=== PATIENT | male | born 1975 | race Caucasian/White ===

== ENCOUNTER → 2020-06-09 13:14 | Outpatient (BNVA) | payer OTHER, SELFPAY | PROVIDERS: PCP Internal Medicine; Visit Provider Physician Assistant | DX: S87.82XA Crushing injury of left lower leg, initial encounter (principal); S99.922A Unspecified injury of left foot, initial encounter | CPT/HCPCS: 99213 ==

== ENCOUNTER → 2020-06-17 12:23 | Outpatient (BNVA) | payer OTHER, SELFPAY | PROVIDERS: PCP Internal Medicine; Referring Provider Internal Medicine; Visit Provider Physician Assistant | DX: S87.82XD Crushing injury of left lower leg, subsequent encounter (principal) | CPT/HCPCS: 99213 ==

== ENCOUNTER → 2020-07-18 13:03 | Outpatient (BNVA) | payer OTHER, SELFPAY | PROVIDERS: Visit Provider Physician Assistant | DX: S97.82XD Crushing injury of left foot, subsequent encounter (principal); S97.81XD Crushing injury of right foot, subsequent encounter; M77.52 Other enthesopathy of left foot and ankle | CPT/HCPCS: 99212 ==

== ENCOUNTER 2020-09-08 14:00 | Outpatient (RCR) | payer OTHER, SELFPAY ==
--- NOTE | 2020-07-22 16:46 | MHC.PT.EP ---
[facility] [place] Office [place] Office [place] Office [address] Billy Garcia [address] [phone] F: [phone] F: [phone] F: [phone] F: [phone] Physical Therapy Plan of Care Date of Evaluation: 07/22/20 Date of Surgery: NA Diagnosis: FOOT CRUSH INJURY BILATERAL (LEFT > RIGHT) Assessment: ELIN IS A PLEASANT 45 YO HOSTESS WHO WAS INJURED AT WORK WHEN STRUCK IN BOTH LEGS WITH BOBCAT TIRE. HE SUSTAINED AN INVERSION INJURY TO RIGHT ANKLE, EVERSION INJURY TO LEFT ANKLE. IMPAIRMENTS NOW INCLUDE DECREASED STRENGTH AND ROM OF MYRNA FEET AND ANKLES, MILD INCREASE IN LEFT SIDED EDEMA, ALTERED SOFT TISSUE MOBILITY OF LEFT MEDIAL CALF, RIGHT LATERAL CALF, INCREASED PAIN. 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 Frequency and Duration: The patient will be seen 2 X WEEK FOR 6 WEEKS Short Term Goals: INITIATE HEP AND PROMOTE INDEPENDENT MANAGEMENT OF PAIN IN 2 WEEKS Senior Living Goals: TO DEMONSTRATE NORMALIZED SOFT TISSUE MOBILITY 3:3 T/O MYRNA LE IN 6 WEEKS TO DEMONSTRATE FULL ANKLE ROM AND STRENGTH WITHOUT RESTRUCTION IN 6 WEEKS TO TOLERANCE AMBULATION ON BOTH LEVEL AND UNEVEN SURFACES WITHOUT RESTRICTION IN 2 WEEKS TO RETURN TO WORK FT/FD IN 6 WEEKS WITH PAIN NO GREATER THAN 2/10 Treatment Plan: Modalities to reduce pain, spasms and effusion. Manual therapy to restore motion and function. Therapeutic exercise to improve strength and flexibility. Neuromuscular re-education for posture and balance. Therapeutic activities to return to functional activities of daily living. Please sign and return to therapist. Thank you for your referral.
== END 2020-09-29 13:20 | disposition other institution (70) ==
LOC: HO.PT 14:00
PROVIDERS: Visit Provider Physician Assistant
DX: S87.82XD Crushing injury of left lower leg, subsequent encounter (principal)
CPT/HCPCS: 97110; 97162; 97530; 97535

== ENCOUNTER → 2020-09-17 12:33 | Outpatient (BNVA) | payer OTHER, SELFPAY | PROVIDERS: PCP Internal Medicine; Visit Provider Physician Assistant | DX: S87.82XD Crushing injury of left lower leg, subsequent encounter (principal) | CPT/HCPCS: 99212 ==

== ENCOUNTER → 2020-10-29 12:15 | Outpatient (BNVA) | payer OTHER, SELFPAY | PROVIDERS: Visit Provider Physician Assistant | DX: S87.82XA Crushing injury of left lower leg, initial encounter (principal); M77.52 Other enthesopathy of left foot and ankle | CPT/HCPCS: 99212 ==

== ENCOUNTER → 2020-11-12 13:20 | Outpatient (BNVA) | payer OTHER, SELFPAY | PROVIDERS: Visit Provider Physician Assistant | DX: M17.12 Unilateral primary osteoarthritis, left knee (principal) | CPT/HCPCS: 20610; 99212; J1040 ==

== ENCOUNTER → 2022-03-04 15:37 | Outpatient (BNVA) | payer OTHER, SELFPAY | PROVIDERS: PCP Internal Medicine; Referring Provider Internal Medicine; Visit Provider Nurse Practitioner | DX: R79.89 Other specified abnormal findings of blood chemistry (principal) | CPT/HCPCS: 99202 ==

== ENCOUNTER → 2022-03-24 13:09 | Outpatient (BNVA) | payer OTHER, SELFPAY | PROVIDERS: PCP Internal Medicine; Visit Provider Physician Assistant | DX: M17.12 Unilateral primary osteoarthritis, left knee (principal); M23.92 Unspecified internal derangement of left knee | CPT/HCPCS: 99212 ==

== ENCOUNTER 2022-03-31 18:57 | Outpatient (REF) | payer OTHER, SELFPAY ==
--- NOTE | ~2022-03-31 | MR_ITS ---
EXAMINATION: MR KNEE WITHOUT CONTRAST, LEFT CLINICAL INFORMATION: Unilateral primary osteoarthritis, left knee. COMPARISON: 05/29/2019 TECHNIQUE: MRI of the knee without contrast was performed using routine sequences on a high-field scanner. FINDINGS: MENISCI: Medial Meniscus: The posterior horn and body of the medial meniscus are markedly macerated with significant loss of meniscal tissue. There is an extruded flap fragment at the meniscal body which is displaced cephalad at the meniscofemoral recess, measuring 1.4 cm in length. Anterior horn appears relatively well preserved. Lateral Meniscus: Intact. LIGAMENTS: Cruciate: ACL is absent, consistent with a chronic tear with resorption. PCL is intact. Collateral: Intact. EXTENSOR MECHANISM: Intact. ARTICULAR CARTILAGE/BONE: Patellofemoral Compartment: Cxizoegk-fc-adgik marginal osteophytes are present at the patella. Mild chondral surface irregularity at the median ridge. Chondral fissures are noted in the central trochlear groove with nonuniform chondral thinning. Rkspoclb-jg-[id number] marginal osteophytes. Medial Compartment: Full-thickness articular cartilage loss is present at the majority of the medial femoral condyle and medial tibial articular surfaces with associated articular cortical remodeling, sclerosis, and subchondral edema. A small amount of residual articular cartilage is present in the anterior and lateral aspects of the medial compartment. Lateral Compartment: Focal moderate to high-grade cartilage loss is present at the medial quarter of the lateral tibial plateau involving the lateral tibial spine with associated articular remodeling of the tip of the lateral tibial spine. Moderate sized marginal osteophytes. More mild chondral thinning at the medial aspect of the lateral femoral condyle. JOINT FLUID AND BURSAE: Small joint effusion. No Ruffin's cyst. There is a multilocular cyst along the anteromedial margin of the medial tibial plateau extending medially from the region of the patellar tendon insertion and anteriorly from the region of the MCL insertion, likely a ganglion cyst. The exact site of origin is uncertain, though the multilocular cyst measures approximately 5.6 cm in length and 1.2 x 1.2 cm in greatest cross-section. Synovial cysts are evident at the origin of the medial and lateral heads of the gastrocnemius muscles. Loose bodies in the posterior aspect of the joint measure up to 0.8 cm in diameter. MR/MR knee LT wo con IMPRESSION: 1. Severe medial compartment osteoarthritis with marked meniscal maceration, extrusion, and degenerative tearing. 2. Chronically torn and resorbed ACL. 3. More iudp-pp-zxiislvv lateral and mild patellofemoral compartment osteoarthritis. 4. Small joint effusion with loose bodies in the posterior aspect of the joint.
== END 2022-03-31 18:58 | disposition home or self-care (01) ==
LOC: HO.MRI 18:57
PROVIDERS: Visit Provider Physician Assistant
DX: M17.12 Unilateral primary osteoarthritis, left knee (principal); M23.92 Unspecified internal derangement of left knee
CPT/HCPCS: 73721

== ENCOUNTER 2022-04-07 05:57 | Outpatient (REF) | payer OTHER, SELFPAY ==
[2022-04-07 06:08] LABS: MANUAL DIFF FLAG NO
[2022-04-07 07:34] LABS: Basophils Percent Auto 0.3 % (0-2); Eosinophils Percent Auto 0.6 % (0-4); Hematocrit 46.1 % (42.0-52.0); Hemoglobin 15.8 g/dl (14.0-18.0); Imm Gran Abs Auto 0.04 X10*3/uL (0.00-0.03); Imm Gran Pct Auto 0.6 % (0.0-0.4); Lymphocytes Percent Auto 31.4 % (20-40); Mean Corpuscular HGB Conc 34.3 g/dl (31.0-36.0); Mean Corpuscular Hemoglobin 30.8 pg (27.0-33.0); Mean Corpuscular Volume 89.9 fL (80.0-98.0); Mean Platelet Volume 9.9 fL (9.4-12.4); Monocytes Absolute Auto 0.5 X10*3/uL (0.1-1.2); Monocytes Percent Auto 8.5 % (2-11); Neutrophils Absolute Auto 3.7 x10*3/uL (2.0-8.3); Neutrophils Percent Auto 58.6 % (45-73); Platelet Count 241 X10*3/uL (160-400); Red Blood Count 5.13 X10*6/uL (4.60-5.80); Red Cell Distribution Width 12.8 % (11.0-16.0); White Blood Count 6.2 X10*3/uL (4.8-10.8)
[2022-04-07 08:05] LABS: Alanine Aminotransferase 97 U/L (0-40); Albumin Level 4.4 g/dL (3.5-5.0); Alkaline Phosphatase 64 U/L (39-117); Anion Gap 15 (12-20); Aspartate Amino Transferase 38 U/L (5-37); Bilirubin Total 0.8 mg/dL (0.0-1.0); Blood Urea Nitrogen 14 mg/dL (9-16); Calcium 9.1 mg/dL (8.4-10.2); Carbon Dioxide 25 mmol/L (22-29); Chloride 105 mmol/L (96-108); Estimated Glomerular Filt Rate > 60; Gamma Glutamyl Transpeptidase 131 U/L (11-51); Glucose Random 98 mg/dL (60-115); Potassium 4.2 mmol/L (3.3-5.1); Sodium 141 mmol/L (135-145); Total Protein 7.2 g/dL (6.5-8.0)
[2022-04-07 08:16] LABS: HBc Num1 0.21 S/CO (0.00-0.79); HBsAGNum1 0.24 S/CO (0.00-0.99); HIV AB/AG Nonreactive (Nonreactive); HIV Num 1 0.14 S/CO (0.00-0.99); Hepatitis A Antibody IgM 0.37 Index (0-0.79); Hepatitis B Core Antibody Nonreactive (Nonreactive); Hepatitis B Surface Antigen Negative (Negative); ~Hepatitis A Antibody IgM Nonreactive (Nonreactive); ~Hepatitis B Surface Antibody NONREACTIVE (Nonreactive); ~Hepatitis C Antibody Nonreactive (Nonreactive)
[2022-04-07 08:24] LABS: Ferritin 316 ng/mL (20-250)
[2022-04-09 13:21] LABS: Alpha Fetoprotein 2.7 ng/mL (<6.1)
[2022-04-12 16:52] LABS: Anti Nuclear Antibody Screen POSITIVE (NEGATIVE); Anti Nuclear Antibody Titer 1:40 titer
[2022-04-13 13:56] LABS: Smooth Muscle Antibody <20 U (<20)
[2022-04-14 15:32] LABS: Mitochondrial Antibodies NEGATIVE (NEGATIVE)
== END 2022-04-07 05:58 | disposition home or self-care (01) ==
LOC: HO.LAB 05:57
PROVIDERS: PCP Internal Medicine; Visit Provider Nurse Practitioner
DX: R79.89 Other specified abnormal findings of blood chemistry (principal)
CPT/HCPCS: 36415; 80053; 82105; 82728; 82977; 85025; 86015; 86038; 86039; 86255; 86256; 86704; 86706; 86709; 86803; 87340; 87389

== ENCOUNTER 2022-04-26 08:51 | Outpatient (REF) | payer OTHER, SELFPAY ==
--- NOTE | ~2022-04-26 | US_ITS ---
EXAMINATION: US COMPLETE ABDOMEN WITH LIVER ELASTOGRAPHY CLINICAL INFORMATION: Elevated LFTs COMPARISON: None. TECHNIQUE: Real-time imaging of the abdominal viscera. Noninvasive ultrasound liver fibrosis assessment is performed using Adwoa ElastPQ point quantification shear wave elastography (2D-SWE) with a C5-2 MHz transducer. Multiple elastography samples are obtained. FINDINGS: PANCREAS: Normal. The visualized pancreatic head and body are normal in appearance. The remainder of the pancreas is obscured from visualization by the overlying bowel gas. ABDOMINAL AORTA: The proximal, middle, and distal aortic segments are normal in caliber. INFERIOR VENA CAVA: Visualized portions are normal. LIVER: The liver demonstrates normal size, contour and increased echogenicity. No focal lesion or intrahepatic biliary duct dilatation. The right lobe measures 17.7 cm in length. The left lobe measures 7.9 cm in length. Portal flow is hepatopedal Shear wave liver elastography median stiffness is 1.47 m/s (reference: normal median stiffness is 1.3 m/s or less). IQR/median stiffness to assess sampling precision is 0.07 (reference: good quality data set is IQR/median stiffness of 0.15 or less). GALLBLADDER: Gallbladder wall thickness is 0.2 cm The gallbladder is physiologically distended without evidence of stones, sludge, polyps, wall thickening or pericholecystic fluid. COMMON BILE DUCT: Normal in caliber measuring 0.3 cm in diameter. RIGHT KIDNEY: Normal. No hydronephrosis. No renal calculi or focal parenchymal lesions. The kidney measures 12.1 cm in maximum dimension. LEFT KIDNEY: Normal. No hydronephrosis. No renal calculi or focal parenchymal lesions. The kidney measures 12.1 cm in maximum dimension. SPLEEN: Normal. The spleen measures 9.4 cm in maximum dimension. FREE FLUID: None. US/US abdomen comp w elastography IMPRESSION: 1. Diffuse hepatic steatosis without focal lesion. Rest of the abdominal ultrasound is unremarkable. 2. Liver elastography: Median liver stiffness measures 1.47 m/s corresponds to cACLD (ruled out) REFERENCE: Society of Radiologists in Ultrasound Liver Stiffness Thresholds (2019): LIVER STIFFNESS THRESHOLDS: *Liver Stiffness equal or less than 1.3 m/s: High probability of being normal. *Liver Stiffness less than 1.7 m/s: In the absence of other known clinical signs, rules out compensated advanced chronic liver disease. *Liver Stiffness 1.7-2.1 m/s: Suggestive of compensated advanced chronic liver disease but need further test for confirmation. *Liver Stiffness over 2.1 m/s: Rules in compensated advanced chronic liver disease. *Liver Stiffness over 2.4 m/s: Suggestive of clinically significant portal hypertension. QUALITY OF DATA SET: *IQR/Median value equal or less than 0.15 implies a quality data set. *IQR/Median value over 0.15 implies a poor quality data set. SIGNIFICANT CHANGE FROM PRIOR EXAM: Significant change if liver stiffness measurement is 10% or greater from prior exam. OTHER CONSIDERATIONS: The stage of liver fibrosis may be overestimated in the setting of acute hepatitis, liver inflammation, elevated liver function tests, hepatic vascular congestion, obstructive cholestasis, non-fasting state, and infiltrative diseases such as amyloidosis and lymphoma. In some patients with NAFLD, the liver stiffness thresholds for compensated advanced chronic liver disease may be lower. In causes other than viral hepatitis and NAFLD, liver stiffness thresholds are not well established.
== END 2022-04-26 08:52 | disposition home or self-care (01) ==
LOC: HO.US 08:51
PROVIDERS: Visit Provider Nurse Practitioner
DX: R79.89 Other specified abnormal findings of blood chemistry (principal)
CPT/HCPCS: 76705; 76981

== ENCOUNTER → 2022-05-04 15:57 | Outpatient (BNVA) | payer OTHER, SELFPAY | PROVIDERS: PCP Internal Medicine; Visit Provider Nurse Practitioner | DX: R94.5 Abnormal results of liver function studies (principal); K76.0 Fatty (change of) liver, not elsewhere classified | CPT/HCPCS: 99212 ==

== ENCOUNTER → 2022-05-07 15:08 | Outpatient (BNVA) | payer OTHER, SELFPAY | PROVIDERS: PCP Internal Medicine; Visit Provider Physician Assistant | DX: M17.12 Unilateral primary osteoarthritis, left knee (principal); S83.512D Sprain of anterior cruciate ligament of left knee, subsequent encounter | CPT/HCPCS: 99212 ==

== ENCOUNTER → 2022-06-10 15:29 | Outpatient (BNVA) | payer OTHER, SELFPAY | PROVIDERS: PCP Internal Medicine; Visit Provider Orthopaedic Surgery | DX: Z01.818 Encounter for other preprocedural examination (principal); S83.512D Sprain of anterior cruciate ligament of left knee, subsequent encounter; M17.12 Unilateral primary osteoarthritis, left knee | CPT/HCPCS: 99212; J1100 ==

== ENCOUNTER → 2022-08-10 11:04 | Outpatient (BNVA) | payer OTHER, SELFPAY | PROVIDERS: PCP Internal Medicine; Visit Provider Surgery | DX: M17.12 Unilateral primary osteoarthritis, left knee (principal); R79.89 Other specified abnormal findings of blood chemistry; E66.01 Morbid (severe) obesity due to excess calories; Z68.38 Body mass index [BMI] 38.0-38.9, adult | CPT/HCPCS: 99202 ==

== ENCOUNTER → 2022-08-12 15:23 | Outpatient (BNVA) | payer OTHER, SELFPAY | PROVIDERS: PCP Internal Medicine; Visit Provider Physician Assistant | DX: Z01.818 Encounter for other preprocedural examination (principal); M17.12 Unilateral primary osteoarthritis, left knee | CPT/HCPCS: 99212 ==

== ENCOUNTER 2022-08-17 09:22 | Inpatient (IN) | payer OTHER, SELFPAY ==
[2022-07-22 16:16] LABS: MANUAL DIFF FLAG NO
[2022-07-22 17:54] LABS: Anion Gap 15 (12-20); Blood Urea Nitrogen 14 mg/dL (9-16); Calcium 9.5 mg/dL (8.4-10.2); Carbon Dioxide 23 mmol/L (22-29); Chloride 106 mmol/L (96-108); Estimated Glomerular Filt Rate > 60; Glucose Random 94 mg/dL (60-115); Potassium 4.1 mmol/L (3.3-5.1); Sodium 140 mmol/L (135-145)
[2022-07-22 17:55] LABS: Basophils Percent Auto 0.3 % (0-2); Eosinophils Absolute Auto 0.1 X10*3/uL (0.0-0.4); Eosinophils Percent Auto 0.8 % (0-4); Hematocrit 46.3 % (42.0-52.0); Hemoglobin 15.5 g/dl (14.0-18.0); Imm Gran Abs Auto 0.03 X10*3/uL (0.00-0.03); Imm Gran Pct Auto 0.5 % (0.0-0.4); Lymphocytes Percent Auto 31.4 % (20-40); Mean Corpuscular HGB Conc 33.5 g/dl (31.0-36.0); Mean Corpuscular Hemoglobin 29.9 pg (27.0-33.0); Mean Corpuscular Volume 89.4 fL (80.0-98.0); Mean Platelet Volume 10.6 fL (9.4-12.4); Monocytes Absolute Auto 0.6 X10*3/uL (0.1-1.2); Monocytes Percent Auto 9.6 % (2-11); Neutrophils Absolute Auto 3.6 x10*3/uL (2.0-8.3); Neutrophils Percent Auto 57.4 % (45-73); Platelet Count 221 X10*3/uL (160-400); Red Blood Count 5.18 X10*6/uL (4.60-5.80); Red Cell Distribution Width 12.5 % (11.0-16.0); White Blood Count 6.3 X10*3/uL (4.8-10.8)
--- NOTE | 2022-07-23 07:02 | ECG_ITS ---
Test Reason : PRE OP Blood Pressure : / mmHG Vent. Rate : 064 BPM Atrial Rate : 064 BPM P-R Int : 152 ms QRS Dur : 086 ms QT Int : 400 ms P-R-T Axes : 059 036 036 degrees QTc Int : 412 ms Normal sinus rhythm Normal ECG When compared with ECG of 11-NOV-2003 08:52, T wave amplitude has decreased in Anterior leads Referred By: Boris Martinez Electronically Signed By:COLLIN MCWILLIAMS MD
[2022-08-04 11:58] VITALS: BP 135/82; PULSE 82; RESP 20; O2SAT 96; BMI 38.2
--- NOTE | 2022-08-04 12:11 | HO.ANESPROP2 ---
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 (Acute) Left ACL tear (Acute) Past Medical History Medical History Fatty liver History of depression Hypertension Obesity Osteoarthritis of left knee Umbilical hernia Family History Family history of problems with anesthesia: No Surgical History Surgical History No pertinent past surgical history History of Problems with Anesthesia: No (Never had anesthesia) Social History Social History Are you a primary housekeeper child care to a significant other at home: No Do you presently have visiting nurse or other home services: No Alcohol intake: current Alcohol intake frequency: holidays/special occasions only Patient Tobacco Use Status: Never used Tobacco Use of substances other than those prescribed or required for medical reasons: No Have you been hit, kicked, punched, or otherwise hurt by someone within the past year? If so, by whom?: No Are you DNR?: No Advance Directives: No Advance Directives Information Provided: Yes Advance Directives on File: No Recently lost weight without trying: No Eating poorly because of decreased appetite: No Nutrition Risks: No Nutritional Risk Poor oral hygiene: No (upper partial) Current occupation: [employer] right handed Narrative Narrative: No recent illness No CP/SOB within limits of pain Meds Allergies Allergy/AdvReac Type Severity Reaction Status Date / Time No Known Allergies Allergy Verified 08/17/22 09:27 Home Medications Medication Instructions Recorded Confirmed Last Taken Type lisinopril 20 mg tablet 20 mg PO DAILY 03/24/22 08/10/22 Unknown History acetaminophen 500 mg tablet 1,000 mg PO Q6H PRN pain 05/04/22 08/10/22 Unknown History omega-3 300 mg-dha 120 mg-epa 180 1 cap PO TID 08/03/22 08/10/22 08/10/22 History mg-fish oil 1,000 mg capsule Exam Exam Date and Time: August 04, 2022 1211 Height,Weight and Vital Signs: Vital Signs Pulse Rate 82 08/04/22 11:58 Respiratory Rate 20 08/04/22 11:58 Blood Pressure 135/82 08/04/22 11:58 Pulse Oximetry 96 08/04/22 11:58 Oxygen Delivery Method RA 08/04/22 11:58 Pertinent Lab Results Pertinent Lab Results: Laboratory Tests 07/22/22 07/22/22 16:16 16:16 WBC 6.3 RBC 5.18 Hgb 15.5 Hct 46.3 MCV 89.4 MCH 29.9 MCHC 33.5 RDW 12.5 Plt Count 221 MPV 10.6 Immature Gran % (Auto) 0.5 H Neut % (Auto) 57.4 Lymph % (Auto) 31.4 Woods % (Auto) 9.6 Eos % (Auto) 0.8 Baso % (Auto) 0.3 Lymph # (Auto) 2.0 Woods # (Auto) 0.6 Eos # (Auto) 0.1 Baso # (Auto) 0.0 Abs Immat Gran (auto) 0.03 Absolute Neuts (auto) 3.6 Absolute Nucleated RBC 0.000 Nucleated RBC % (auto) 0.0 Sodium 140 Potassium 4.1 Chloride 106 Carbon Dioxide 23 Anion Gap 15 BUN 14 Creatinine 0.88 Estim Creat Clear Calc TNP Estimated GFR > 60 Random Glucose 94 Calcium 9.5 Narrative Narrative: EKG 07/2022 Vent. Rate : 064 BPM ? ? Atrial Rate : 064 BPM ?? P-R Int : 152 ms? QRS Dur : 086 ms ? ? QT Int : 400 ms ? ? ? P-R-T Axes : 059 036 036 degrees ?? QTc Int : 412 ms ? Normal sinus rhythm Normal ECG When compared with ECG of 11-NOV-2003 08:52, T wave amplitude has decreased in Anterior leads Airway Mallampati Class: IV TM Dist: >3cm Neck ROM: Full Partial: Upper Heart: RRR Lungs: CTAB Assessment and Plan Assessment Anesthesia Assessment: Anesthesia Plan Discussed and PAT Visit Final Anesthetic Review Family History of Problems with Anesthesia: No History of Problems with Anesthesia: No (Never had anesthesia) Documented by User: Erika Luna MD 08/17/22 09:57 [facility] Past Medical History Medical History Fatty liver History of depression Hypertension Obesity Osteoarthritis of left knee Umbilical hernia Surgical History Surgical History No pertinent past surgical history Social History Social History Are you a primary housekeeper child care to a significant other at home: No Do you presently have visiting nurse or other home services: No Alcohol intake: current Alcohol intake frequency: holidays/special occasions only Patient Tobacco Use Status: Never used Tobacco Use of substances other than those prescribed or required for medical reasons: No Have you been hit, kicked, punched, or otherwise hurt by someone within the past year? If so, by whom?: No Are you DNR?: No Advance Directives: No Advance Directives Information Provided: Yes Advance Directives on File: No Recently lost weight without trying: No Eating poorly because of decreased appetite: No Nutrition Risks: No Nutritional Risk Poor oral hygiene: No (upper partial) Current occupation: [employer] right handed Meds Allergies Allergy/AdvReac Type Severity Reaction Status Date / Time No Known Allergies Allergy Verified 08/17/22 09:27 Home Medications Medication Instructions Recorded Confirmed Last Taken Type lisinopril 20 mg tablet 20 mg PO DAILY 03/24/22 08/10/22 Unknown History acetaminophen 500 mg tablet 1,000 mg PO Q6H PRN pain 05/04/22 08/10/22 Unknown History omega-3 300 mg-dha 120 mg-epa 180 1 cap PO TID 08/03/22 08/10/22 08/10/22 History mg-fish oil 1,000 mg capsule Assessment and Plan Assessment Anesthesia Assessment: Chart Reviewed Final Anesthetic Review NPO: Yes ASA Class: III Final Preanesthetic Review: No Changes in Pt Med Stat, Meds/Allgs Chart Reviewed, Consent Obtained/Reviewed and Anes Risks/Benef Reviewed Patient Risk: Intermediate Procedure Risk: Intermediate Anesthetic Plan Anesthetic Plan: Spinal and Regional Block Disposition: Standard PACU
[2022-08-04 14:08] LABS: MRSA Nasal PCR NEGATIVE (Negative); SA Nasal PCR NEGATIVE (Negative)
[2022-08-17] VITALS (14 sets, daily range): BP systolic 110–145; BP diastolic 64–88; PULSE 60–87; RESP 16–18; TEMP 36.1–36.9; O2SAT 94–99; BMI 38.2
--- NOTE | ~2022-08-17 | XR_ITS ---
EXAMINATION: XR KNEE, LEFT CLINICAL INFORMATION: Left total knee arthroplasty. COMPARISON: Left leg radiographs dated 06/02/2020. TECHNIQUE: Four views of the left knee. FINDINGS: The patient is status post left knee arthroplasty showing good anatomic alignment and no evidence for hardware malfunction. Mild intra-articular and subcutaneous air is seen. Multilevel anterior surgical skin clips are noted. XR/XR knee LT 2V IMPRESSION: Post surgical changes. No hardware abnormality.
[2022-08-17 09:50] LABS: COVID-19 Test Negative (Negative); IDNOW Serial# BCCEAD1C
[2022-08-17 09:51] LABS: Hematocrit 47.1 % (42.0-52.0); Hemoglobin 16.1 g/dl (14.0-18.0)
[2022-08-17] MEDS: Lactated Ringers 1,000 ML 100 ML IVCONT ×2 (09:57→15:42)
--- NOTE | 2022-08-17 11:16 | MHC.SHP ---
Pre-Procedural Eval Section A Date of Service: 08/17/22 The patient is an INPATIENT: No Changes since office visit: Yes Patient answered all questions; No Cold of Flu in the past 2 weeks, No New Medical Problems and No Changes in Medication The History & Physical has been completed within 30 days and I have reviewed it.: Yes Section B Chief Complaint: LT TKA Allergies: Allergies Allergy/AdvReac Type Severity Reaction Status Date / Time No Known Allergies Allergy Verified 08/17/22 09:27 Plan I have reviewed the history and physical and performed a pertinent physical examination on my patient. No changes have occurred unless specified. Time Spent With Patient Time: Total time managing care of this patient today ____ minutes.
--- NOTE | 2022-08-17 13:27 | P.BOP_ITS ---
Brief Operative Note Date of Service: 08/17/22 Pre-op diagnosis: Left knee OA Post-op diagnosis: same Procedure: Left TKA Implants: [place] Triathlon posterior stabilized press fit 01/08/12 Surgeon: Boris Martinez MD Was an Retail Sales Associate Bilingual used for this Procedure?: Yes Retail Sales Associate Bilingual: Winsome Parker Estimated blood loss (mL): 150 IV fluids (mL): 1,000 Pathology: other Condition: stable Disposition: PACU
--- NOTE | 2022-08-17 13:32 | W.PM.OPN ---
Operative Note Operative Note Date of Service: 08/17/22 Narrative: Date of Service: 08/17/22 Pre-op diagnosis: Left knee OA Post-op diagnosis: same Procedure: Left TKA Implants: [place] Triathlon posterior stabilized press fit 01/08/12 Surgeon: Boris Martinez MD Was an Credit Risk Associate used for this Procedure?: Yes Credit Risk Associate: Winsome Parker Estimated blood loss (mL): 150 IV fluids (mL): 1,000 Pathology: other Condition: stable Disposition: PACU Procedure in detail: The patient was brought to the operating room and prepped and draped in standard sterile fashion. A time-out was called to identify proper site proper procedure proper surgeon and IV antibiotics were administered. 1 g of IV tranexamic acid was administered. I began by making a midline incision to the retinaculum and performed a medial parapatellar arthrotomy. The patella was translated laterally and the knee was flexed up. The medial compartment was eburnated. I performed a small medial peel and resected the infrapatellar fat pad. [place]'s line was then used to drill my intramedullary femoral guide and my distal femur cut of 10 mm was made in 5 degrees of valgus while protecting the soft tissues. I then measured a # 5 femur and placed my cutting guide and made my anterior posterior and chamfer cuts protecting the soft tissues at all times. I then made my box but removing the PCL. Once I was satisfied with my cuts I turned my attention to the tibia. I removed the meniscus medially and laterally and , using an external cutting guide, in line with the tibial crest and the third ray, I made my distal tibial cut in 0 deg slope of while protecting the PCL the posterior soft tissues at all times. An extension block was used to confirm appropriate amount of bony resection. I then sized a #5 tibia and once I was satisfied that there was complete tibial coverage I placed my trial and with the trial femur in place took the knee through range of motion. I was satisfied with the extension and flexion as well as the stability at 0, 30 and 90 degrees. I then turned my attention to the patella where I removed 1 cm from the undersurface of the patella and then trialed a 35a patellar button. Again the knee was taken through range of motion I was satisfied with the tracking. I then returned to the femur and drilled my femoral lug holes and prepared the tibia. A femoral bone plug was placed and the knee was irrigated copiously. I then press fit the patella, tibia and femur in standard fashion. I trialed different inserts until I selected a #12 insert. The final insert was placed and a 3 minutes iodine soak with local TXA was performed. A Werewolf cautery wand was used to maintain hemostasis over the capsule and meniscal beds, the gutters and peripatellar soft tissues. The knee was then closed with a running Quill suture, a 3 0 Vicryl and guero on the skin. Patient was then placed in sterile dressing and brought to recovery room in stable condition there were no known complications.
--- NOTE | 2022-08-17 14:00 | PHA.MEDREC ---
Pharmacy Consult ? Medication Reconciliation Pharmacy has reviewed the medication reconciliation completed by nursing. Marilou Benavides, JeffD
[2022-08-17] MEDS: oxyCODONE HCl Immed Release 5 MG TABLET 10 MG PO (14:35)
[2022-08-17] MEDS: Acetaminophen 325 MG TABLET 650 MG PO (14:35)
[2022-08-17] MEDS: ceFAZolin Sodium/Dextrose,Iso 2 GM/50 ML PIGGYBACK IV (17:59)
[2022-08-17] MEDS: Docusate Sodium 100 MG CAPSULE PO (19:59)
[2022-08-17] MEDS: oxyCODONE HCl ER 10 MG TAB.ER.12H PO (19:59)
[2022-08-17] MEDS: Celecoxib 200 MG CAPSULE PO (19:59)
[2022-08-18] MEDS: Lactated Ringers 1,000 ML 100 ML IVCONT ×3 (01:26→19:56)
[2022-08-18 03:31] VITALS: BP 136/62; PULSE 64; RESP 16; TEMP 36.4; O2SAT 97
[2022-08-18] MEDS: oxyCODONE HCl Immed Release 5 MG TABLET 10 MG PO ×3 (05:43→22:23)
[2022-08-18 06:15] LABS: MANUAL DIFF FLAG NO
[2022-08-18 06:26] LABS: Basophils Percent Auto 0.2 % (0-2); Eosinophils Percent Auto 0.1 % (0-4); Hematocrit 38.8 % (42.0-52.0); Hemoglobin 13.1 g/dl (14.0-18.0); Imm Gran Abs Auto 0.05 X10*3/uL (0.00-0.03); Imm Gran Pct Auto 0.4 % (0.0-0.4); Lymphocytes Absolute Auto 1.4 X10*3/uL (1.2-4.9); Lymphocytes Percent Auto 11.4 % (20-40); Mean Corpuscular HGB Conc 33.8 g/dl (31.0-36.0); Mean Corpuscular Hemoglobin 30.3 pg (27.0-33.0); Mean Corpuscular Volume 89.8 fL (80.0-98.0); Mean Platelet Volume 10.2 fL (9.4-12.4); Monocytes Absolute Auto 1.1 X10*3/uL (0.1-1.2); Neutrophils Absolute Auto 9.7 x10*3/uL (2.0-8.3); Neutrophils Percent Auto 78.9 % (45-73); Platelet Count 226 X10*3/uL (160-400); Red Blood Count 4.32 X10*6/uL (4.60-5.80); Red Cell Distribution Width 12.4 % (11.0-16.0); White Blood Count 12.3 X10*3/uL (4.8-10.8)
[2022-08-18 06:56] LABS: Anion Gap 13 (12-20); Blood Urea Nitrogen 13 mg/dL (9-16); Calcium 8.7 mg/dL (8.4-10.2); Carbon Dioxide 24 mmol/L (22-29); Chloride 106 mmol/L (96-108); Estimated Glomerular Filt Rate > 60; Glucose Fasting 112 mg/dL (60-99); Sodium 139 mmol/L (135-145)
--- NOTE | 2022-08-18 07:40 | PM.PNORT ---
Subjective Subjective Date of Service: 08/18/22 Interval history: POD1 s/p LTKA. No overnight events. Pain is managed. No additional complaints. Physical Exam Vital Signs: Vital Signs: Last Vital Signs Temp 97.6 F 08/18/22 03:31 Pulse 64 08/18/22 03:31 Resp 16 08/18/22 03:31 BP 136/62 08/18/22 03:31 Pulse Ox 97 08/18/22 03:31 O2 Del Method 08/18/22 03:31 BMI result Body Mass Index 38.2 Const: General: cooperative, healthy appearing and no acute distress Resp: Effort & Inspection: normal respiratory effort and able to speak in complete sentences Cardio: Rate: regular rate Peripheral pulses: Peripheral pulses 2+ throughout GI: Palpation (GI): Soft to palpation Skin: Lesions: no lesions Rashes: no rashes Extrem: Other: Left knee Aquacel is c/d/i. Able to dorsiflex and plantarflex. NVI. Procedures Date of Service Date of Service: 08/18/22 Progress Note: A&P Assessment and plan (1) Status post total knee replacement, left: Status: Acute Plan Continue pain mgmnt Begin ASA for dvt ppx begin PT for LTKA Dispo planning-Pending PT eval, pain mgmnt Time Spent With Patient Time: Total time managing care of this patient today ____ minutes. Quality Stroke Does the patient have a stroke diagnosis?: No VTE Prior VTE?: No VTE Risk Level:: Medical - moderate - high VTE Device Contraindication: N/A - Device Ordered VTE Drug Contraindication: N/A - Med Ordered
[2022-08-18 07:43] VITALS: BP 112/59; PULSE 65; RESP 18; TEMP 36.6; O2SAT 96
[2022-08-18] MEDS: oxyCODONE HCl ER 10 MG TAB.ER.12H PO ×2 (08:37→19:55)
[2022-08-18] MEDS: lisinopriL 20 MG TABLET PO (08:37)
[2022-08-18] MEDS: Celecoxib 200 MG CAPSULE PO ×2 (08:37→19:55)
[2022-08-18] MEDS: Docusate Sodium 100 MG CAPSULE PO ×2 (08:38→19:55)
--- NOTE | 2022-08-18 10:41 | HO.PM.IMCN ---
History of Present Illness Data of Consult Service Date: 08/18/22 Primary Care Provider: Unknown Physician HPI 47 male with with past medical as listed below who underwent elective left TKA on 08/[address] Martinez. He is being seen medical consult. He has no acute complaint at this time. Vitals look good, labs reviewed and unremarkable. Pain is reasonably well controlled. Review of Systems Review of Systems: some pain in the knee, no chest pain, no sob Yes all other systems are reviewed and are negative [facility] Medical History Fatty liver History of depression Hypertension Obesity Osteoarthritis of left knee Umbilical hernia Surgical History No pertinent past surgical history Social History Household Members: Spouse Are you a primary care advocate to a significant other at home: No Do you presently have visiting nurse or other home services: No Alcohol intake: current Alcohol intake frequency: holidays/special occasions only Patient Tobacco Use Status: Never used Tobacco Current occupation: [employer] right handed [employer] Allergies Allergy/AdvReac Type Severity Reaction Status Date / Time No Known Allergies Allergy Verified 08/17/22 09:27 Active Medications: Current Medications Acetaminophen (Acetaminophen 325 Mg Tablet) 650 mg PO Q6H PRN PRN Reason: Pain, Mild (Pain Scale 1-3) Last Admin: 08/17/22 14:35 Dose: 650 mg Aspirin (Aspirin 325 Mg Tablet) 325 mg PO BID [facility] Celecoxib (Celecoxib 200 Mg Capsule) 200 mg PO BID [facility] Last Admin: 08/18/22 08:37 Dose: 200 mg Docusate Sodium (Docusate Sodium 100 Mg Capsule) 100 mg PO BID [facility] Last Admin: 08/18/22 08:38 Dose: 100 mg Hydromorphone HCl (Hydromorphone Hcl 0.5 Mg/0.5 Ml Syringe) 0.25 mg IVPUSH Q4H PRN; Protocol PRN Reason: Pain, Severe (Pain Scale 7-10) Lactated Ringer's (Lr) 1,000 mls @ 100 mls/hr IVCONT .Q10H [facility] Last Admin: 08/18/22 01:26 Dose: 100 mls/hr Lisinopril (Lisinopril 20 Mg Tablet) 20 mg PO DAILY [facility]; Protocol Last Admin: 08/18/22 08:37 Dose: 20 mg Ondansetron HCl (Ondansetron Hcl 4 Mg/2 Ml Vial) 4 mg IVPUSH Q8H PRN PRN Reason: Nausea and Vomiting Oxycodone HCl (Oxycodone Hcl Immed Release 5 Mg Tablet) 10 mg PO Q4H PRN PRN Reason: Pain, Moderate (Pain Scale 4-6 Last Admin: 08/18/22 05:43 Dose: 10 mg Oxycodone HCl (Oxycodone Hcl Er 10 Mg Tab.Er.12h) 10 mg PO BID [facility] Last Admin: 08/18/22 08:37 Dose: 10 mg Sodium Chloride (0.9 % Sodium Chloride Flush 3 Ml Syringe) 3 ml IVFLUSH QSHIFT [facility] Last Admin: 08/18/22 08:38 Dose: Not Given Home Medications Medication Instructions Recorded Confirmed Last Taken Type lisinopril 20 mg tablet 20 mg PO DAILY 03/24/22 08/10/22 Unknown History acetaminophen 500 mg tablet 1,000 mg PO Q6H PRN pain 05/04/22 08/10/22 Unknown History omega-3 300 mg-dha 120 mg-epa 180 1 cap PO TID 08/03/22 08/10/22 08/10/22 History mg-fish oil 1,000 mg capsule Physical Exam Vital Signs and Narrative: Vital Signs: Last Vital Signs Temp 97.9 F 08/18/22 07:43 Pulse 65 08/18/22 07:43 Resp 18 08/18/22 07:43 BP 112/59 L 08/18/22 07:43 Pulse Ox 96 08/18/22 07:43 O2 Del Method 08/18/22 07:43 BMI result Body Mass Index 38.2 Const: Other: Constitutional: Alert, in no distress, overweight. Mental Status: Oriented to person, place and time. Eyes: Pupils are equal, round and reactive to light. Ear, Nose and Throat: Oropharynx clear, mucous membranes moist. Ears and nose without eformities. Respiratory: Clear to auscultation. No wheezing, rales or rhonchi. Cardiovascular: S1 S2 regular. No murmurs, rubs or gallops. Gastrointestinal: Abdomen soft, non-tender, non-distended. Normal bowel sounds.? Neurologic: Cranial nerves II-XII grossly intact. No focal neurological deficits. Moves all extremities spontaneously.? Skin: No rashes or lesions.? Knee wrapping in place Musculoskeletal: No cyanosis or clubbing. Psychiatric: Normal mood and affect? Results Labs CBC and Chem 7: 08/18/22 05:27 08/18/22 05:27 Labs: Laboratory Results - last 24 hr 08/18/22 08/18/22 05:27 05:27 MCV 89.8 MCH 30.3 MCHC 33.8 RDW 12.4 Plt Count 226 MPV 10.2 Immature Gran % (Auto) 0.4 Neut % (Auto) 78.9 H Lymph % (Auto) 11.4 L [place] % (Auto) 9.0 Eos % (Auto) 0.1 Baso % (Auto) 0.2 Lymph # (Auto) 1.4 [place] # (Auto) 1.1 Eos # (Auto) 0.0 Baso # (Auto) 0.0 Abs Immat Gran (auto) 0.05 H Absolute Neuts (auto) 9.7 H Absolute Nucleated RBC 0.000 Nucleated RBC % (auto) 0.0 Anion Gap 13 Estim Creat Clear Calc 138.0 Estimated GFR > 60 Fasting Glucose 112 H Calcium 8.7 D Imaging Radiologist's Impressions: Impressions Knee X-Ray 08/17/22 14:44 IMPRESSION: Post surgical changes. No hardware abnormality. Assessment and Plan (1) Morbid (severe) obesity due to excess calories: Status: Acute (2) Status post total knee replacement, left: Status: Acute Plan 47/ with fatty liver, obesity s/p left TKA s/p TKA management by ortho including DVT prevention and pain management HTN--BP controlled, continue Lisinopril morbid obesity, fatty liver--weight loss advised given no acute issues, and med issues, stable, will sing off, and will follow on PRN basis, thanks Time Spent With Patient Time: Total time managing care of this patient today ____ minutes.
[2022-08-18] MEDS: Aspirin 325 MG TABLET PO ×2 (11:43→19:55)
--- NOTE | 2022-08-18 13:57 | MHC.CM.PN ---
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 ANTIC D/C HOME TODAY VS TOMORROW W/NEW [facility]
[2022-08-18 15:06] VITALS: BP 136/64; PULSE 80; RESP 19; TEMP 36.4; O2SAT 96
[2022-08-18 19:00] VITALS: BP 131/67; PULSE 80; RESP 20; TEMP 36.8; O2SAT 96
[2022-08-19] MEDS: oxyCODONE HCl Immed Release 5 MG TABLET 10 MG PO ×2 (03:52→10:18)
[2022-08-19 04:00] VITALS: BP 128/72; PULSE 80; RESP 17; TEMP 36.2; O2SAT 95
[2022-08-19] MEDS: Lactated Ringers 1,000 ML 100 ML IVCONT (04:45)
[2022-08-19 06:24] LABS: Anion Gap 11 (12-20); Blood Urea Nitrogen 12 mg/dL (9-16); Calcium 8.3 mg/dL (8.4-10.2); Carbon Dioxide 26 mmol/L (22-29); Chloride 107 mmol/L (96-108); Creatinine Clr Calc Pharmacy 146.1; Estimated Glomerular Filt Rate > 60; Glucose Fasting 101 mg/dL (60-99); Potassium 3.9 mmol/L (3.3-5.1); Sodium 140 mmol/L (135-145)
[2022-08-19 08:00] VITALS: BP 140/56; PULSE 106; RESP 16; O2SAT 95
[2022-08-19] MEDS: lisinopriL 20 MG TABLET PO (08:29)
[2022-08-19] MEDS: Aspirin 325 MG TABLET PO (08:29)
[2022-08-19] MEDS: Celecoxib 200 MG CAPSULE PO (08:30)
[2022-08-19] MEDS: oxyCODONE HCl ER 10 MG TAB.ER.12H PO (08:30)
[2022-08-19] MEDS: Docusate Sodium 100 MG CAPSULE PO (08:30)
[2022-08-19] MEDS: HYDROmorphone HCl 0.5 MG/0.5 ML SYRINGE 0.25 MG IVPUSH (08:34)
[2022-08-19 08:49] LABS: Hematocrit 38.4 % (42.0-52.0)
[2022-08-19 09:09] LABS: MANUAL DIFF FLAG NO
[2022-08-19 09:14] LABS: Basophils Percent Auto 0.2 % (0-2); Eosinophils Percent Auto 0.2 % (0-4); Hematocrit 36.1 % (42.0-52.0); Hemoglobin 12.2 g/dl (14.0-18.0); Imm Gran Abs Auto 0.04 X10*3/uL (0.00-0.03); Imm Gran Pct Auto 0.4 % (0.0-0.4); Lymphocytes Absolute Auto 1.5 X10*3/uL (1.2-4.9); Lymphocytes Percent Auto 14.9 % (20-40); Mean Corpuscular HGB Conc 33.8 g/dl (31.0-36.0); Mean Corpuscular Hemoglobin 30.7 pg (27.0-33.0); Mean Corpuscular Volume 90.7 fL (80.0-98.0); Mean Platelet Volume 9.7 fL (9.4-12.4); Monocytes Absolute Auto 1.2 X10*3/uL (0.1-1.2); Monocytes Percent Auto 11.9 % (2-11); Neutrophils Percent Auto 72.4 % (45-73); Platelet Count 193 X10*3/uL (160-400); Red Blood Count 3.98 X10*6/uL (4.60-5.80); White Blood Count 9.7 X10*3/uL (4.8-10.8)
--- NOTE | 2022-08-19 09:14 | PM.DS ---
DS: Providers Provider Date of Service: 08/19/22 Date of admission: 08/17/22 09:22 Primary care physician: Unknown Physician Consults: 08/17/22 17:12 Consult to Hospitalist Routine Consulting Provider: Hospitalist Reason For Exam: h/o ETOH abuse DS: Diagnosis Discharge Diagnosis (1) Status post total knee replacement, left: Status: Acute DS: Summary Hospital Course Hospital Course: The patient underwent a successful left total knee arthroplasty, was transferred to PACU and then to the floor to recover. During their stay, their vitals were stable, afebrile at 97.2. Labs were unremarkable, H/H 12.2/36.1. POD 1 he was started on ASA for DVT ppx, they also received PT services twice a day. Prior to discharge, their dressing was change, incision clean dry and intact, new Aquacel dressing applied and the plan was to be discharged home with [facility]na services Time Spent with Patient Time attestation: Total time managing care of this patient today ____ minutes. Discharge coordination time: Less than 30 minutes Quality: Safe Use of Opioids Does Pt have an Active Cancer Diagnosis on the Problem List?: No Quality: Stroke Does the patient have a stroke diagnosis?: No Physical Exam Vital Signs: Vital Signs: Last Vital Signs Temp 97.2 F 08/19/22 04:00 Pulse 80 08/19/22 04:00 Resp 17 08/19/22 04:00 BP 128/72 08/19/22 04:00 Pulse Ox 95 08/19/22 04:00 O2 Del Method 08/19/22 04:00 BMI result Body Mass Index 38.2 Const: General: cooperative, healthy appearing and no acute distress Resp: Effort & Inspection: normal respiratory effort and able to speak in complete sentences Cardio: Rate: regular rate Peripheral pulses: Peripheral pulses 2+ throughout GI: Palpation (GI): Soft to palpation Skin: General skin exam: no rashes or lesions noted Extrem: Other: incision clean dry and intact. [place] intact. No erythema or joint effusion. Calf supple nontender. Neurovascularly intact. DS: Data Data Completed and Pending Pending studies at discharge: Pending at discharge 08/17/22 12:45 Surgical [PTH] Routine Labs on day of discharge: Laboratory Results - last 24 hr 08/19/22 08/19/22 05:13 08:31 Hgb 13.0 L Hct 38.4 L Sodium 140 Potassium 3.9 Chloride 107 Carbon Dioxide 26 Anion Gap 11 L BUN 12 Creatinine 0.68 Estim Creat Clear Calc 146.1 Estimated GFR > 60 Fasting Glucose 101 H Calcium 8.3 L Discharge Plan Discharge Anticipated Discharge Date/Time: 08/19/22 09:14 Patient Disposition: Home Health Service Discharge Diagnosis: LT TKA Referrals: Jimmy VERA [Outside] - 1 Day (HOME PT) Merline Gannon PA-C [Physician Computer Assistant] - 2 Weeks (09/02/22 1:30 [facility] [place] [facility] Merline Gannon PA-C[place] Discharge Medications: New docusate sodium 100 mg Capsule 100 mg PO BID 14 Days Qty: 28 0RF celecoxib 200 mg Capsule 200 mg PO BID 30 Days Qty: 60 0RF acetaminophen 325 mg Tablet 650 mg PO Q6H PRN (Reason: Pain, Mild (Pain Scale 1-3)) 30 Days Qty: 240 0RF aspirin 325 mg Tablet 325 mg PO BID 42 Days Qty: 84 0RF oxycodone 5 mg Tablet 5 mg PO Q4H PRN (Reason: Pain, Moderate (Pain Scale 4-6) 7 Days Qty: 42 0RF Rx Instructions: Partial Fill upon patient request. Continued lisinopril 20 mg tablet 20 mg PO DAILY Discontinued omega 2-seu-odn-fish oil 300 mg (120 mg- 180mg)-1,000 mg capsule 1 cap PO TID acetaminophen 500 mg tablet 1,000 mg PO Q6H PRN (Reason: pain) Discharge Orders: Discharge Order (Routine); Ordered 08/19/22 Ordered By: Winsome Parker Diet: Regular diet Activity on Discharge: Use cane or walker Stand Alone Forms: Patient Portal Discharge page Care Plan Goals: Restore function of joint Health Concerns: none Plan of Treatment: Physical Therapy Pain management DVT prophylaxis Assessment: Physical Therapy for Total knee arthroplasty: WBAT, gait training, ROM 0-12, quad strength Limit stair climbing No showering, no tub bath-keep dressing clean, dry and intact No driving x6 weeks Continue Aspirin twice a day x 6 weeks Follow up [place] [facility] [place] [facility] [place]: 09/02/2213:30[facility] [place] [facility]
--- NOTE | 2022-08-19 09:26 | HO.POSTANES ---
Post Anesthesia Evaluation Post Anesthesia Evaluation Vital Signs: Vital Signs Temp Pulse Resp BP Pulse Ox O2 Del Method 08/19/22 04:00 97.2 F 80 17 128/72 95 Room Air Anesthesia: Spinal and Nerve Block Mental Status: Awake Pain Control: Satisfactory Nausea/Vomiting: None Hydration: Adequate Anesthesia-Related Issues: No Anes. Related Issues
--- NOTE | 2022-08-19 10:06 | W.MHC.F2F ---
Service Date Service Date: 08/19/22 Encounter Date of encounter: 08/19/22 Reasons for Services Signs and symptoms assessed: Left knee pain, swelling, difficulty with ambulation, quad weakness Reason for physical therapy: home safety and mobility, therapeutic exercises, restore joint function, gait/transfer training, ADL training and energy conservation Reason for occupational therapy: home safety and mobility, therapeutic exercises, restore joint function, gait/transfer training, ADL training and energy conservation Overseeing Care: Boris Martinez Homebound: Leaving the home is medically contraindicated at this time without the asist of a device and/or another person due th the listed conditions above and below. Reason homebound: unsteady gait / fall risk, leg weakness, pain with ambulation, poor balance / fall risk and unable to drive Homebound supporting statement: Pt. is considered home bound due to recent surgery. Unable to drive, poor balance, poor gait mechanics. Certification: Based on the above findings, I certify that this patient is confined to the home and needs intermittent fci care, physical therapy and/or speech therapy, or continues to need occupational therapy. The patient is under my care, and I have initiated the establishment of the plan of care. The patient will be followed by a physician who will periodically review the plan of care. Time Spent With Patient Time: Total time managing care of this patient today ____ minutes.
[2022-08-19 10:14] VITALS: BP 140/61; PULSE 98; TEMP 36.6; O2SAT 97
--- NOTE | 2022-08-19 12:10 | MHC.CM.PN ---
PT MEDICALLY CLEARED FOR D/C HOME W/NEW [facility] W/FAMILY FOR TRANSPORT
== END 2022-08-19 12:30 | disposition home health service (06) | DRG 326 ==
LOC: HO.SSSA 09:33 → HO.S3 15:23
PROVIDERS: Physician Assistant; Admitting Provider Orthopaedic Surgery; Visit Provider Orthopaedic Surgery
PROC: 0SRD0JA Replacement of Left Knee Joint with Synthetic Substitute, Uncemented, Open Approach (ICD-10-PCS; CPT 27447; principal; 2022-08-17 11:40)
DX: M17.12 Unilateral primary osteoarthritis, left knee (principal); K76.0 Fatty (change of) liver, not elsewhere classified; E66.01 Morbid (severe) obesity due to excess calories; Z20.822 Contact with and (suspected) exposure to COVID-19; Z68.38 Body mass index [BMI] 38.0-38.9, adult; Z79.899 Other long term (current) drug therapy
CPT/HCPCS: 27447; 36415; 73560; 80048; 85014; 85018; 85025; 86850; 86900; 86901; 87635; 87640; 87641; 88305; 88311; 93005; 97110; 97116; 97161; 97530; C1776; J0690; J1100; J1170; J2250; J2370

== ENCOUNTER → 2022-09-02 13:16 | Outpatient (BNVA) | payer OTHER, SELFPAY | PROVIDERS: Visit Provider Physician Assistant | DX: Z13.89 Encounter for screening for other disorder (principal) ==

== ENCOUNTER → 2022-09-30 12:19 | Outpatient (BNVA) | payer OTHER, SELFPAY | PROVIDERS: Visit Provider Physician Assistant | DX: Z13.89 Encounter for screening for other disorder (principal) ==

== ENCOUNTER 2022-10-28 11:09 | Outpatient (REF) | payer OTHER, SELFPAY ==
[2022-10-28 12:04] LABS: MANUAL DIFF FLAG NO
[2022-10-28 12:21] LABS: Basophils Percent Auto 0.3 % (0-2); Eosinophils Absolute Auto 0.1 X10*3/uL (0.0-0.4); Eosinophils Percent Auto 0.8 % (0-4); Hematocrit 45.6 % (42.0-52.0); Hemoglobin 15.5 g/dl (14.0-18.0); Imm Gran Abs Auto 0.02 X10*3/uL (0.00-0.03); Imm Gran Pct Auto 0.3 % (0.0-0.4); Lymphocytes Absolute Auto 2.2 X10*3/uL (1.2-4.9); Mean Corpuscular Hemoglobin 29.3 pg (27.0-33.0); Mean Corpuscular Volume 86.2 fL (80.0-98.0); Monocytes Absolute Auto 0.4 X10*3/uL (0.1-1.2); Monocytes Percent Auto 7.1 % (2-11); Neutrophils Absolute Auto 3.4 x10*3/uL (2.0-8.3); Neutrophils Percent Auto 55.5 % (45-73); Platelet Count 225 X10*3/uL (160-400); Red Blood Count 5.29 X10*6/uL (4.60-5.80); Red Cell Distribution Width 12.1 % (11.0-16.0); White Blood Count 6.1 X10*3/uL (4.8-10.8)
[2022-10-28 13:02] LABS: Alanine Aminotransferase 22 U/L (0-40); Albumin Level 4.4 g/dL (3.5-5.0); Alkaline Phosphatase 82 U/L (39-117); Anion Gap 12 (12-20); Aspartate Amino Transferase 15 U/L (5-37); Bilirubin Total 0.7 mg/dL (0.0-1.0); Blood Urea Nitrogen 11 mg/dL (9-16); Calcium 9.4 mg/dL (8.4-10.2); Carbon Dioxide 27 mmol/L (22-29); Chloride 106 mmol/L (96-108); Estimated Glomerular Filt Rate > 60; Glucose Random 99 mg/dL (60-115); Potassium 4.3 mmol/L (3.3-5.1); Sodium 141 mmol/L (135-145); Total Protein 7.4 g/dL (6.5-8.0)
[2022-11-01 14:08] LABS: Alpha Fetoprotein 2.3 ng/mL (<6.1)
== END 2022-10-28 11:10 | disposition home or self-care (01) ==
LOC: HO.LAB 11:09
PROVIDERS: PCP Internal Medicine; Visit Provider Nurse Practitioner
DX: Z01.818 Encounter for other preprocedural examination (principal); K76.0 Fatty (change of) liver, not elsewhere classified; E66.01 Morbid (severe) obesity due to excess calories
CPT/HCPCS: 36415; 80053; 82105; 85025; 99212

== ENCOUNTER 2022-11-03 14:00 | Outpatient (RCR) | payer OTHER, SELFPAY ==
--- NOTE | 2022-11-18 09:11 | MHC.PT.DC ---
[facility] [place] Office [place] Office [place] Office [address] Billy Garcia [address] [phone] F: [phone] F: [phone] F: [phone] F: [phone] Physical Therapy Discharge Report Diagnosis: LEFT TKA Date of Surgery: 08/17/23 Date of Evaluation: 09/15/22 Date of Discharge: 11/18/22 Treatments to Date: 10 Cancellations to Date: 0 No Shows to Date: 0 Discharge Status: Achieved Goals Improved Function Independent with HEP Discharge Summary: Young progressed well with PT and has met all goals of PT. ROM 0-120, strength is 5/5 T/O hip and leg. Electronically signed by: Eileen Landa PT, DPT Please sign and return to therapist. Thank you for your referral.
== END 2022-11-18 09:12 | disposition home or self-care (01) ==
LOC: HO.PT 14:00
PROVIDERS: Visit Provider Physician Assistant
DX: Z96.652 Presence of left artificial knee joint (principal)
CPT/HCPCS: 97110; 97112; 97161; 97530

== ENCOUNTER 2022-11-11 08:58 | Outpatient (REF) | payer OTHER, SELFPAY ==
--- NOTE | ~2022-11-11 | XR_ITS ---
EXAMINATION: XR knee standing BI, XR knee LT 2V CLINICAL INFORMATION: Reason for Exam M25.569 - Pain in unspecified knee COMPARISON: 08/17/2022 TECHNIQUE: 2 views of the left knee and standing view of the bilateral knees XR/XR knee standing BI FINDINGS/IMPRESSION: * No acute fracture or dislocation. * Status post left total knee arthroplasty without evidence of hardware complication. * No soft tissue abnormality.
--- NOTE | ~2022-11-11 | XR_ITS ---
EXAMINATION: XR knee standing BI, XR knee LT 2V CLINICAL INFORMATION: Reason for Exam M25.569 - Pain in unspecified knee COMPARISON: 08/17/2022 TECHNIQUE: 2 views of the left knee and standing view of the bilateral knees XR/XR knee LT 2V FINDINGS/IMPRESSION: * No acute fracture or dislocation. * Status post left total knee arthroplasty without evidence of hardware complication. * No soft tissue abnormality.
== END 2022-11-11 08:59 | disposition home or self-care (01) ==
LOC: HO.HOSX 08:58
PROVIDERS: Visit Provider Physician Assistant
DX: M25.562 Pain in left knee (principal); Z47.1 Aftercare following joint replacement surgery; Z96.652 Presence of left artificial knee joint
CPT/HCPCS: 73560; 73565; 99212

== ENCOUNTER 2022-11-25 08:52 | Outpatient (REF) | payer OTHER, SELFPAY ==
--- NOTE | ~2022-11-25 | US_ITS ---
EXAMINATION: US ABDOMEN LIMITED CLINICAL INFORMATION: Fatty (change of) liver, not elsewhere classified. COMPARISON: US abdomen complete with liver elastography 04/26/2022. Ultrasound abdomen complete 11/28/2015. TECHNIQUE: Real-time imaging of the right upper quadrant abdominal viscera. FINDINGS: PANCREAS: Pancreas could not be evaluated secondary to overlying bowel gas. LIVER: The liver is probably enlarged measuring at least 17 cm in greatest length. The liver contour is normal. There is diffuse increased liver parenchymal echogenicity, consistent with hepatic steatosis. No focal hepatic lesion. There is no intrahepatic biliary duct dilatation seen. GALLBLADDER: The gallbladder is physiologically distended without evidence of stones, sludge, polyps, wall thickening or pericholecystic fluid. COMMON BILE DUCT: Normal in caliber measuring 0.4 cm in diameter. RIGHT KIDNEY: No hydronephrosis. No renal calculi or focal parenchymal lesions. The kidney measures 12.7 cm in maximum dimension. FREE FLUID: None. US/US abdomen limited IMPRESSION: Mildly enlarged fatty liver.
== END 2022-11-25 08:53 | disposition home or self-care (01) ==
LOC: HO.US 08:52
PROVIDERS: PCP Internal Medicine; Visit Provider Nurse Practitioner
DX: K76.0 Fatty (change of) liver, not elsewhere classified (principal)
CPT/HCPCS: 76705

== ENCOUNTER 2023-03-17 05:59 | Outpatient (REF) | payer OTHER, SELFPAY ==
[2023-03-17 08:27] LABS: Cholesterol 217 mg/dL; HDL Cholesterol 48 mg/dL; LDL Cholesterol Calculated 128 mg/dl; Triglycerides 207 mg/dL
[2023-03-17 08:31] LABS: Reflex LDLD? No
[2023-03-17 08:41] LABS: Alanine Aminotransferase 43 U/L (0-40); Albumin Level 4.2 g/dL (3.5-5.0); Alkaline Phosphatase 70 U/L (39-117); Aspartate Amino Transferase 24 U/L (5-37); Bilirubin Direct 0.2 mg/dL (0.0-0.5); Bilirubin Total 0.7 mg/dL (0.0-1.0); Total Protein 6.8 g/dL (6.5-8.0)
== END 2023-03-17 06:00 | disposition home or self-care (01) ==
LOC: HO.LAB 05:59
PROVIDERS: PCP Internal Medicine; Visit Provider Internal Medicine
DX: E78.2 Mixed hyperlipidemia (principal)
CPT/HCPCS: 36415; 80061; 80076

== ENCOUNTER 2023-03-30 15:34 | Outpatient (AMB) | payer OTHER, SELFPAY ==
--- NOTE | 2023-03-30 15:36 | A.OFFVIS_ITS ---
Intake Vital Signs 03/30/23 15:43 Height 5 ft 5 in Weight 232 lb BMI 38.6 BP 133/83 Blood Pressure Location Rt brachial Position Sitting Pulse 70 Intake Visit Reasons: Umbilical hernia Intake Note: This patient presents for an assessment for an umbilical hernia. Patient c/o; Onset over 1 year, denies pain, bulge, denies problems with bowel movements. Compliance Engineer Required: Yes Compliance Engineer Language: Cargo And Container Inspector Name: [place] Information Interpreted: non-clinical & clinical Accompanied by: Self / Same As Patient Allergies No Known Allergies Allergy (Verified 03/30/23 15:44) Medication List - Last Reconciled 03/30/23 by Scot Lopez MD acetaminophen 650 mg (2 x 325 mg) PO Q6H PRN 30 days celecoxib 200 mg PO BID 30 days docusate sodium 100 mg PO BID 14 days lisinopril 20 mg PO DAILY oxycodone 5 mg PO Q6H PRN 7 days HPI Umbilical hernia HPI Details 47-year-old male here for umbilical hernia. He has had this umbilical mass for about 8 months. He was seen by Dr. Nathan for this last year but he was scheduled to have left knee replacement at that time so no surgery was planned for the hernia. He now says that he is ready to proceed with repair. He feels that the hernia has been increasing in size. He describes discomfort with this. He otherwise denies any significant complaints. 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 [facility] Medical History Elevated LFTs Fatty liver History of depression Hypertension Morbid (severe) obesity due to excess calories Obesity Osteoarthritis of left knee Umbilical hernia Surgical History Hx of total knee replacement No pertinent past surgical history Social History Household Members: Spouse Are you a primary director career to a significant other at home: No Do you presently have visiting nurse or other home services: No Alcohol intake: current Alcohol intake frequency: holidays/special occasions only Patient Tobacco Use Status: Never used Tobacco service: No Current occupational status: employed Current occupation: [employer]. right handed Review of Systems Const Denies chills and Denies fever(s) Card Denies chest pain, Denies dyspnea and Denies dyspnea on exertion Resp Denies cough, Denies dyspnea and Denies dyspnea on exertion GI Denies hematochezia and Denies change in bowel habits Denies hematuria and Denies difficulty urinating Musc Denies back pain and Denies limited range of motion Neuro Denies focal weakness and Denies convulsions Psych Denies depression and Denies mood swings Physical Exam Vital Signs: Last Vital Signs Pulse 70 03/30/23 15:43 BP 133/83 03/30/23 15:43 BMI result Body Mass Index 38.6 Const General: comfortable and no acute distress Orientation/consciousness: patient oriented x3 Neck Neck: Yes no lymphadenopathy Resp Auscultation: clear to auscultation bilaterally Cardio Rhythm: regular rhythm GI Other: Umbilical hernia, reducible, about 2.5 cm in diameter Palpation (GI): Soft to palpation, nontender and no guarding Neuro General: patient oriented x3 Assessment & Plan Assessment & Plan (1) Umbilical hernia: Code(s): K42.9 - Umbilical hernia without obstruction or gangrene Plan: He has an umbilical hernia as described above. He describes discomfort in increase in size. I reviewed with him the technique of repair of the umbilical hernia with possible mesh placement. I discussed the risks including but not limited to bleeding, infections, injury, recurrence, postop pain, as well as the benefits and alternatives. He says he understands and wants to proceed. Coding Level of Care Code Est Pt Level 3 (24563) Diagnoses Umbilical hernia K42.9
[2023-03-30 15:43] VITALS: BP 133/83; PULSE 70; BMI 38.6
== END 2023-03-30 16:01 | disposition home or self-care (01) ==
PROVIDERS: PCP Internal Medicine; Referring Provider Internal Medicine; Visit Provider Surgery
DX: K42.9 Umbilical hernia without obstruction or gangrene (principal)
CPT/HCPCS: 99213

== ENCOUNTER → 2023-03-30 15:34 | Outpatient (BNVA) | payer OTHER, SELFPAY | PROVIDERS: PCP Internal Medicine; Referring Provider Internal Medicine; Visit Provider Surgery | DX: K42.9 Umbilical hernia without obstruction or gangrene (principal) | CPT/HCPCS: 99212 ==

== ENCOUNTER 2023-05-10 05:55 | Day surgery (SDC) | payer OTHER, SELFPAY ==
[2023-05-05 07:07] VITALS: BMI 38.6
--- NOTE | 2023-05-06 09:52 | HO.ANESPROP2 ---
Documented by User: Yvette Milton NP 05/06/23 09:55 HPI - Anesthesia Eval Consult details Narrative: 47yo M for Hernia Repair Umbilical w/ possible mesh s/p TKA 08/2022 with spinal/block PMFSH Active Problems Active Problems: All Active Problems (Updated 10/28/22 @ 12:02 by MASON Sierra) History of arthroplasty of left knee (Acute) Pre-op examination (Acute) Morbid (severe) obesity due to excess calories (Acute) Status post total knee replacement, left (Acute) Umbilical hernia (Acute) Crush injury, leg, lower (Acute) Left ankle tendonitis (Acute) Osteoarthritis of left knee (Acute) Arthritis of left knee (Acute) Internal derangement of left knee (Acute) 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 (Acute) Left ACL tear (Acute) Past Medical History Medical History Elevated LFTs Fatty liver History of depression Hypertension Morbid (severe) obesity due to excess calories Obesity Osteoarthritis of left knee Umbilical hernia Family History Family history of problems with anesthesia: No Surgical History Surgical History Hx of total knee replacement No pertinent past surgical history History of Problems with Anesthesia: No (Never had anesthesia) Social History Social History Household Members: Spouse Are you a primary home care physical therapist to a significant other at home: No Do you presently have visiting nurse or other home services: No Alcohol intake: current Alcohol intake frequency: holidays/special occasions only Patient Tobacco Use Status: Never used Tobacco service: No Current occupational status: employed Current occupation: [employer] right handed Meds Allergies Allergy/AdvReac Type Severity Reaction Status Date / Time No Known Allergies Allergy Verified 05/10/23 06:31 Home Medications Medication Instructions Recorded Confirmed Last Taken Type lisinopril 20 mg tablet 20 mg PO DAILY 03/24/22 05/10/23 Unknown History Exam Exam Date and Time: May 06, 2023 0952 Height,Weight and Vital Signs: Height 5 ft 5 in Weight 105.233 kg Pertinent Lab Results Pertinent Lab Results: Laboratory Tests 10/28/22 10/28/22 12:02 12:02 WBC 6.1 Hgb 15.5 D Hct 45.6 D Plt Count 225 Sodium 141 Potassium 4.3 Chloride 106 Carbon Dioxide 27 BUN 11 Creatinine 0.81 Narrative Narrative: EKG 2021 Vent. Rate : 064 BPM ? ? Atrial Rate : 064 BPM ?? P-R Int : 152 ms? QRS Dur : 086 ms ? ? QT Int : 400 ms ? ? ? P-R-T Axes : 059 036 036 degrees ?? QTc Int : 412 ms ? Normal sinus rhythm Normal ECG When compared with ECG of 11-NOV-2003 08:52, T wave amplitude has decreased in Anterior leads Assessment and Plan Assessment Anesthesia Assessment: Chart Reviewed Final Anesthetic Review Family History of Problems with Anesthesia: No History of Problems with Anesthesia: No (Never had anesthesia) Documented by User: Felipe Cantrell MD 05/10/23 08:27 [facility] Past Medical History Medical History Elevated LFTs Fatty liver History of depression Hypertension Morbid (severe) obesity due to excess calories Obesity Osteoarthritis of left knee Umbilical hernia Surgical History Surgical History Hx of total knee replacement No pertinent past surgical history Social History Social History Household Members: Spouse Are you a primary home care physical therapist to a significant other at home: No Do you presently have visiting nurse or other home services: No Alcohol intake: current Alcohol intake frequency: holidays/special occasions only Patient Tobacco Use Status: Never used Tobacco service: No Current occupational status: employed Current occupation: [email or web address]. right handed Meds Allergies Allergy/AdvReac Type Severity Reaction Status Date / Time No Known Allergies Allergy Verified 05/10/23 06:31 Home Medications Medication Instructions Recorded Confirmed Last Taken Type lisinopril 20 mg tablet 20 mg PO DAILY 03/24/22 05/10/23 Unknown History Exam Airway Mallampati Class: II TM Dist: <=3cm Neck ROM: Full Partial: Upper Loose/Missing/Broken Teeth: Yes and Upper Heart: ok Lungs: ok Assessment and Plan Assessment Anesthesia Assessment: Anesthesia Plan Discussed Final Anesthetic Review NPO: Yes ASA Class: III Final Preanesthetic Review: No Changes in Pt Med Stat, Meds/Allgs Chart Reviewed, Consent Obtained/Reviewed and Anes Risks/Benef Reviewed Patient Risk: Intermediate Procedure Risk: Low Anesthetic Plan Anesthetic Plan: GA and Agree w/ Assess. and Plan Disposition: Standard PACU
[2023-05-10 06:30] VITALS: BP 142/93; PULSE 68; RESP 18; TEMP 36.6; O2SAT 97
[2023-05-10] MEDS: Lactated Ringers 1,000 ML 100 ML IVCONT (06:34)
--- NOTE | 2023-05-10 07:24 | MHC.SHP ---
Pre-Procedural Eval Section A Date of Service: 05/10/23 Section B Chief Complaint: Umbilical hernia without obstruction or gangrene Details of Present Illness: has umbilical hernia x many months with discomfort Relevant Family History (Specify if Yes): No Relevant Social History: None Present Medications: see Short Stay Collaborative assessment Medical History: Significant History (obesity, OA) Allergies: Allergies Allergy/AdvReac Type Severity Reaction Status Date / Time No Known Allergies Allergy Verified 05/10/23 06:31 Review of Systems Sugical H&P ROS: Negative: Constitution, Cardiovascular, Respiratory, Neurological, Psychiatric, Hem-Onc, Allergic/Immunologic, Gastrointestinal, Genitourinary, Musculoskeletal, Integumentary, Endocrine and Eyes/Ears/Nose/Throat Exam Surgical H&P Exam: Normal: HEENT, Normal: Heart, Normal: Lungs, Normal: Extremities, Normal: Skin and Normal: Neurological and Significant Findings: Abdomen (umbilical hernia about 2 cm) Plan Diagnosis/Plan: Unchanged I have reviewed the history and physical and performed a pertinent physical examination on my patient. No changes have occurred unless specified. Time Spent With Patient Time: Total time managing care of this patient today ____ minutes.
--- NOTE | 2023-05-10 08:09 | P.OP_ITS ---
Operative Note Operative Note Date of Service: 05/10/23 Narrative: Preop diagnosis: Umbilical hernia Postop diagnosis: Umbilical hernia Procedure: Repair of umbilical hernia with Ventralex mesh Surgeon: Scot Lopez MD He was brought to the operating room placed supine under general anesthesia via laryngeal mask airway. The abdomen was prepped and draped in the usual sterile fashion. A surgical time-out was done. The patient received cefazolin 2 g IV preoperatively. I infiltrated the planned line of incision with lidocaine 1%. I made a transverse supraumbilical curvilinear incision using a blade 15. This wascarried down with electrocautery through the full-thickness of the skin and subcutaneous fat. I identified the hernia which contained fat. I lifted the umbilicus as a flap off of the rest of the hernia contents using sharp dissection with Metzenbaum scissors. I then proceeded to gently dissect the hernia contents off of the rest of the subcutaneous layer as well as the fascial defect until I was able to completely reduce this with the defect. There were no bowel loops surrounding the fascial defect. The fascial defect was about 1.5 cm. I used a small-sized Ventralex mesh to cover the defect under the fascia. This was secured to the fascial layer using Prolene 2 sutures to the Prolene straps of the mesh . I closed the fascia with a [id number] Maxon 1 stitch. The umbilical flap was tacked down to the fascia with a Polysorb 3-0 stitch to re-create the dimple. The subcutaneous layer was reapposed with Polysorb 3-0 simple interrupted sutures . The skin incision was closed with running subcuticular Polysorb 4-0 stitch. The area was infiltrated with Marcaine 0.5% for postop analgesia. Dressings were applied. The procedure was completed. The patient tolerated the procedure well. There were no immediate complicati ons. Initial and final counts of sponges and instruments were correct. Estimated blood loss was about 5 cc. The patient was extubated without difficulty and transferred to the recovery room with stable vital signs.
[2023-05-10 08:18] VITALS: BP 117/75; PULSE 85; RESP 16; TEMP 36.6; O2SAT 94
[2023-05-10 08:23] VITALS: BP 121/75; PULSE 80; RESP 16; O2SAT 95
[2023-05-10 08:28] VITALS: BP 110/79; PULSE 75; RESP 16; O2SAT 94
[2023-05-10 08:33] VITALS: BP 110/79; PULSE 74; TEMP 36.2; O2SAT 95
[2023-05-10 08:48] VITALS: BP 120/66; PULSE 80; RESP 18; TEMP 36.2; O2SAT 96
[2023-05-10] MEDS: oxyCODONE HCl Immed Release 5 MG TABLET PO (08:50)
[2023-05-10] MEDS: Acetaminophen 325 MG TABLET 650 MG PO (08:52)
== END 2023-05-10 09:09 | disposition home or self-care (01) ==
PROVIDERS: PCP Internal Medicine; Visit Provider Surgery
PROC: (CPT 49591; principal; 2023-05-10 07:30)
DX: K42.9 Umbilical hernia without obstruction or gangrene (principal); I10 Essential (primary) hypertension; M17.12 Unilateral primary osteoarthritis, left knee; Z96.652 Presence of left artificial knee joint; E66.01 Morbid (severe) obesity due to excess calories; K76.0 Fatty (change of) liver, not elsewhere classified; Z68.38 Body mass index [BMI] 38.0-38.9, adult; Z79.899 Other long term (current) drug therapy
CPT/HCPCS: 49591; C1781; J0690; J2795; J3010

== ENCOUNTER → 2023-05-10 05:55 | Outpatient (BNV) | payer OTHER, SELFPAY | PROVIDERS: PCP Internal Medicine; Visit Provider Surgery | DX: K42.9 Umbilical hernia without obstruction or gangrene (principal) | CPT/HCPCS: 49591 ==

== ENCOUNTER 2023-05-23 08:53 | Outpatient (AMB) | payer OTHER, SELFPAY ==
--- NOTE | 2023-05-23 09:00 | A.OFFVIS_ITS ---
Intake Vital Signs 05/23/23 09:06 Weight 229 lb BP 144/88 H Blood Pressure Location Rt brachial Position Sitting Pulse 62 Intake Visit Reasons: S/P umbilical hernia repair Intake Note: This patient presents for a post-op assessment status post umbilical hernia repair. Patient c/o; denies any complaints at this time pertaining to surgery. Pelt Salter Required: Yes Pelt Salter Language: Programmer Developer Name: Paradise Information Interpreted: non-clinical & clinical Accompanied by: Self / Same As Patient Allergies No Known Allergies Allergy (Verified 05/23/23 09:00) HPI S/P umbilical hernia repair HPI Details He underwent repair of an umbilical hernia with mesh last 05/10/2023. He tolerated procedure well. He currently denies significant complaints. [facility] Medical History Morbid (severe) obesity due to excess calories Fatty liver Hypertension Osteoarthritis of left knee History of depression Obesity Umbilical hernia Elevated LFTs Surgical History History of umbilical hernia repair (~05/10/23) Hx of total knee replacement No pertinent past surgical history Social History Household Members: Spouse Are you a primary resident care assistant to a significant other at home: No Do you presently have visiting nurse or other home services: No Alcohol intake: current Alcohol intake frequency: holidays/special occasions only Patient Tobacco Use Status: Never used Tobacco service: No Current occupational status: employed Current occupation: [employer] right handed Review of Systems Const Denies chills and Denies fever(s) Card Denies chest pain, Denies dyspnea and Denies dyspnea on exertion Resp Denies cough, Denies dyspnea and Denies dyspnea on exertion GI Denies hematochezia and Denies change in bowel habits Denies hematuria and Denies difficulty urinating Musc Denies back pain and Denies limited range of motion Neuro Denies focal weakness and Denies convulsions Psych Denies depression and Denies mood swings Physical Exam Const General: comfortable and no acute distress Resp Effort & Inspection: normal respiratory effort GI Other: Incision clean and dry, healing well, no evidence of recurrence Palpation (GI): Soft to palpation, not firm and nontender Assessment & Plan Assessment & Plan (1) Umbilical hernia: Code(s): K42.9 - Umbilical hernia without obstruction or gangrene Plan: Status post repair of an umbilical hernia with mesh. His incision is healing we ll. The repair site appears intact I advised him to avoid any lifting more than 20 lb for at least 2 more weeks. He can return to work earlier than that provided he does not do any lifting of more than 20 lb. He can otherwise follow up on a p.r.n. basis. Coding Level of Care Code Global (14576) Diagnoses Umbilical hernia K42.9
[2023-05-23 09:06] VITALS: BP 144/88; PULSE 62
== END 2023-05-23 09:17 | disposition home or self-care (01) ==
PROVIDERS: PCP Internal Medicine; Visit Provider Surgery
DX: K42.9 Umbilical hernia without obstruction or gangrene (principal)
CPT/HCPCS: 99213

== ENCOUNTER → 2023-05-23 08:53 | Outpatient (BNVA) | payer OTHER, SELFPAY | PROVIDERS: PCP Internal Medicine; Visit Provider Surgery | DX: Z48.815 Encounter for surgical aftercare following surgery on the digestive system (principal); Z87.19 Personal history of other diseases of the digestive system | CPT/HCPCS: 99212 ==

== ENCOUNTER 2023-08-23 09:16 | Day surgery (SDC) | payer OTHER, SELFPAY ==
[2023-08-19 13:56] VITALS: BMI 35.9
--- NOTE | 2023-08-22 13:40 | HO.ANESPROP2 ---
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 (Acute) Internal derangement of left knee (Acute) Arthritis of left knee (Acute) Osteoarthritis of left knee (Acute) Left ankle tendonitis (Acute) Crush injury, leg, lower (Acute) Morbid (severe) obesity due to excess calories (Acute) Umbilical hernia (Acute) Past Medical History Medical History Morbid (severe) obesity due to excess calories Fatty liver Hypertension Osteoarthritis of left knee History of depression Obesity Umbilical hernia Elevated LFTs Family History Family history of problems with anesthesia: No Surgical History Surgical History History of umbilical hernia repair (~05/10/23) Hx of total knee replacement History of Problems with Anesthesia: No (Never had anesthesia) Social History Social History Household Members: Spouse Are you a primary urgent care nurse practitioner to a significant other at home: No Do you presently have visiting nurse or other home services: No Alcohol intake: current Alcohol intake frequency: holidays/special occasions only Patient Tobacco Use Status: Never used Tobacco Are you DNR?: No Advance Directives: No Advance Directives Information Provided: Yes Nutrition Risks: No Nutritional Risk service: No Current occupational status: employed Current occupation: [employer] right handed Meds Allergies Allergy/AdvReac Type Severity Reaction Status Date / Time No Known Allergies Allergy Verified 08/23/23 10:04 Home Medications Medication Instructions Recorded Confirmed Last Taken Type lisinopril 20 mg tablet 20 mg PO DAILY 03/24/22 08/19/23 Unknown History Exam Height,Weight and Vital Signs: Height 5 ft 7 in Weight 104 kg Assessment and Plan Assessment Anesthesia Assessment: Chart Reviewed Final Anesthetic Review Family History of Problems with Anesthesia: No History of Problems with Anesthesia: No (Never had anesthesia) Documented by User: Maribeth Mckee MD 08/23/23 10:20 PMFSH Past Medical History Medical History Morbid (severe) obesity due to excess calories Fatty liver Hypertension Osteoarthritis of left knee History of depression Obesity Umbilical hernia Elevated LFTs Surgical History Surgical History History of umbilical hernia repair (~05/10/23) Hx of total knee replacement Social History Social History Household Members: Spouse Are you a primary urgent care nurse practitioner to a significant other at home: No Do you presently have visiting nurse or other home services: No Alcohol intake: current Alcohol intake frequency: holidays/special occasions only Patient Tobacco Use Status: Never used Tobacco Are you DNR?: No Advance Directives: No Advance Directives Information Provided: Yes Nutrition Risks: No Nutritional Risk service: No Current occupational status: employed Current occupation: [employer] right handed Meds Allergies Allergy/AdvReac Type Severity Reaction Status Date / Time No Known Allergies Allergy Verified 08/23/23 10:04 Home Medications Medication Instructions Recorded Confirmed Last Taken Type lisinopril 20 mg tablet 20 mg PO DAILY 03/24/22 08/19/23 Unknown History Exam Airway Mallampati Class: II TM Dist: >3cm Neck ROM: Full Partial: Upper Heart: rrr Lungs: cta Assessment and Plan Assessment Anesthesia Assessment: Anesthesia Plan Discussed Final Anesthetic Review NPO: Yes ASA Class: III Final Preanesthetic Review: No Changes in Pt Med Stat, Meds/Allgs Chart Reviewed, Consent Obtained/Reviewed and Anes Risks/Benef Reviewed Patient Risk: Low Procedure Risk: Low Anesthetic Plan Anesthetic Plan: MAC: Disposition: Standard PACU
[2023-08-23 09:33] VITALS: BMI 36.4
[2023-08-23] MEDS: Lactated Ringers 1,000 ML 100 ML IVCONT (09:49)
[2023-08-23 10:03] VITALS: BP 129/75; PULSE 64; RESP 18; TEMP 36.6; O2SAT 95
--- NOTE | 2023-08-23 10:34 | MHC.SHP ---
Pre-Procedural Eval Section A Date of Service: 08/23/23 Section B Chief Complaint: obesity,screening Relevant Family History (Specify if Yes): No Relevant Social History: None Present Medications: see Short Stay Collaborative assessment Medical History: Significant History (Morbid (severe) obesity due to excess calories Fatty liver Hypertension Osteoarthritis of left knee History of depression Obesity Umbilical hernia Elevated LFTs) History of Previous Operations: Relevant previous surgery/procedure and date(s) (History of umbilical hernia repair (~05/10/23) Hx of total knee replacement) Allergies: Allergies Allergy/AdvReac Type Severity Reaction Status Date / Time No Known Allergies Allergy Verified 08/23/23 10:04 Review of Systems Sugical H&P ROS: Negative: Constitution, Cardiovascular, Respiratory, Neurological, Psychiatric, Hem-Onc, Allergic/Immunologic, Gastrointestinal, Genitourinary, Musculoskeletal, Integumentary, Endocrine and Eyes/Ears/Nose/Throat Exam Surgical H&P Exam: Normal: HEENT, Normal: Heart, Normal: Lungs, Normal: Extremities, Normal: Abdomen, Normal: Skin and Normal: Neurological Plan Diagnosis/Plan: Unchanged I have reviewed the history and physical and performed a pertinent physical examination on my patient. No changes have occurred unless specified. Time Spent With Patient Time: Total time managing care of this patient today ____ minutes.
--- NOTE | 2023-08-23 10:35 | W.PM.OPN ---
Operative Note Operative Note Date of Service: 08/23/23 Narrative: Operative Information Procedure Description: Colonoscopy Indication: screening Anesthesia: MAC COLONOSCOPY Instrument: Olympus variable stiffness pediatric scope 190L Colonoscopy Monitoring: Vital signs and clinical assessment, continuous EKG monitoring, Pulse oximetry, Carbon Dioxide monitoring and blood pressure monitoring were done throughout the procedure. Colon withdrawal time was 20 minutes. Procedure: The patient was placed in the left lateral decubitis position and pre-procedure medications were administered. After a digital rectal examination of the ano-rectum, the video colonoscope was inserted into the rectum and advanced through the colon to the cecum/TI. The colonoscope was slowly withdrawn in a retrograde panoramic fashion and the colon mucosa was carefully examined including a retroflexed view of the rectum. Findings and interventions are described below. Procedure Difficulty: easy Findings: Terminal Ileum-normal Cecum: x 2 sessile polyps 5-7 mm removed with cold forceps Ascending Colon: normal Transverse Colon - 6-9 mm sessile polyp removed with cold snare Descending Colon: 10 mm sessile polyp removed with cold snare Sigmoid Colon: moderate diverticulosis, 13-14 mm pedunculated polyp injected with 2 ml of epinephrine and then removed with cold snare. x3 ultra clips applied to the stalk for hemostasis Rectum: Retroflexion with medium sized internal hemorrhoids, grade I Anorectum - normal Colon preparation: [place] Bowel Preparation Scale Right colon; 2 Transverse colon: 2 Left colon; 3 (0 = Unprepared colon segment with mucosa not seen due to solid stool that cannot be cleared. 1 = Portion of mucosa of the colon segment seen, but other areas of the colon segment not well seen due to staining, residual stool and/or opaque liquid. 2 = Minor amount of residual staining, small fragments of stool and/or opaque liquid, but mucosa of colon segment seen well. 3 = Entire mucosa of colon segment seen well with no residual staining, small fragments of stool or opaque liquid) Impression and Post Procedure Diagnosis: polyps internal hemorrhoids diverticular disease Plan: High fiber diet leaflet Avoid straining at stool, epsom salts and sitz bath, anusol supps or cream Repeat Colonoscopy in 2-3 years due to polyp burden or earlier if clinically indicated Above findings were reviewed with the patient and relevant handouts were provided if indicated.
[2023-08-23 11:25] VITALS: BP 109/76; PULSE 0; RESP 16; TEMP 36.4; O2SAT 97
[2023-08-23 11:40] VITALS: BP 115/85; PULSE 71; RESP 20; TEMP 36.3; O2SAT 98
== END 2023-08-23 12:31 | disposition home or self-care (01) ==
PROVIDERS: PCP Internal Medicine; Visit Provider Internal Medicine Gastroenterology
PROC: 0DJD8ZZ Inspection of Lower Intestinal Tract, Via Natural or Artificial Opening Endoscopic (ICD-10-PCS; CPT 45378; principal; 2023-08-23 14:40)
DX: Z12.11 Encounter for screening for malignant neoplasm of colon (principal); D12.0 Benign neoplasm of cecum; D12.3 Benign neoplasm of transverse colon; D12.4 Benign neoplasm of descending colon; D12.5 Benign neoplasm of sigmoid colon; K57.30 Diverticulosis of large intestine without perforation or abscess without bleeding; K64.0 First degree hemorrhoids; K76.0 Fatty (change of) liver, not elsewhere classified; E66.01 Morbid (severe) obesity due to excess calories; Z68.37 Body mass index [BMI] 37.0-37.9, adult; I10 Essential (primary) hypertension; Z79.899 Other long term (current) drug therapy
CPT/HCPCS: 45385; 45380; 45381; 88305; J0171; J2704

== ENCOUNTER → 2023-08-23 09:16 | Outpatient (BNV) | payer OTHER, SELFPAY | PROVIDERS: PCP Internal Medicine; Visit Provider Internal Medicine Gastroenterology | DX: Z12.11 Encounter for screening for malignant neoplasm of colon (principal); D12.0 Benign neoplasm of cecum; D12.3 Benign neoplasm of transverse colon; D12.4 Benign neoplasm of descending colon; D12.5 Benign neoplasm of sigmoid colon; K64.0 First degree hemorrhoids | CPT/HCPCS: 45380; 45381; 45385 ==

== ENCOUNTER 2024-05-15 13:57 | Outpatient (REF) | payer OTHER, SELFPAY ==
--- NOTE | ~2024-05-15 | XR_ITS ---
EXAMINATION: XR KNEE, RIGHT CLINICAL INFORMATION: Right knee pain COMPARISON: X-ray of the knees November 2022 TECHNIQUE: 3 views of the right knee FINDINGS: No fracture or joint effusion. Alignment is anatomic. Joint spaces are maintained. No abnormal soft tissue calcification. XR/XR knee RT 3V IMPRESSION: Normal right knee. Electronically signed by: Lucian Kitchen MD 05/30/2024 06:54 AM EDT RP
== END 2024-05-15 13:58 | disposition home or self-care (01) ==
LOC: HO.HHCX 13:57
PROVIDERS: Visit Provider Internal Medicine
DX: M25.561 Pain in right knee (principal); G89.29 Other chronic pain
CPT/HCPCS: 73562

== ENCOUNTER 2024-05-26 07:19 | Outpatient (REF) | payer OTHER, SELFPAY ==
[2024-05-26 08:21] LABS: Alanine Aminotransferase 66 U/L (0-40); Albumin Level 4.5 g/dL (3.5-5.0); Alkaline Phosphatase 67 U/L (39-117); Anion Gap 11 (12-20); Aspartate Amino Transferase 30 U/L (5-37); Bilirubin Total 0.6 mg/dL (0.0-1.0); Blood Urea Nitrogen 14 mg/dL (9-16); Calcium 8.9 mg/dL (8.4-10.2); Carbon Dioxide 23 mmol/L (22-29); Chloride 110 mmol/L (96-108); Cholesterol 209 mg/dL (<200); Estimated Glomerular Filt Rate > 60; Glucose Random 116 mg/dL (60-115); HDL Cholesterol 48 mg/dL (>40); LDL Cholesterol Calculated 141 mg/dL (<100); Potassium 4.2 mmol/L (3.3-5.1); Sodium 140 mmol/L (135-145); Total Protein 7.4 g/dL (6.5-8.0); Triglycerides 101 mg/dL (<150)
[2024-05-26 08:31] LABS: Prostate Specific Antigen Scr 0.61 ng/mL (<0.05-4.0)
[2024-05-26 08:38] LABS: TSH reflex Free T4 2.43 uIU/mL (0.32-4.0)
== END 2024-05-26 07:20 | disposition home or self-care (01) ==
LOC: HO.LAB 07:19
PROVIDERS: PCP Internal Medicine; Visit Provider Internal Medicine
DX: Z00.00 Encounter for general adult medical examination without abnormal findings (principal); I10 Essential (primary) hypertension; E66.01 Morbid (severe) obesity due to excess calories; Z68.35 Body mass index [BMI] 35.0-35.9, adult
CPT/HCPCS: 36415; 80053; 80061; 84153; 84443

== ENCOUNTER 2025-03-27 06:12 | Outpatient (REF) | payer OTHER, SELFPAY ==
[2025-03-27 07:39] LABS: Alanine Aminotransferase 42 U/L (0-40); Albumin Level 4.5 g/dL (3.5-5.0); Alkaline Phosphatase 59 U/L (39-117); Anion Gap 9 (12-20); Aspartate Amino Transferase 24 U/L (5-37); Blood Urea Nitrogen 12 mg/dL (9-16); Calcium 8.8 mg/dL (8.4-10.2); Carbon Dioxide 27 mmol/L (22-29); Chloride 107 mmol/L (96-108); Cholesterol 212 mg/dL (<200); Estimated Glomerular Filt Rate > 60; HDL Cholesterol 45 mg/dL (>40); Potassium 4.1 mmol/L (3.3-5.1); Sodium 139 mmol/L (135-145); Total Protein 7.0 g/dL (6.5-8.0); Triglycerides 217 mg/dL (<150)
== END 2025-03-27 06:13 | disposition home or self-care (01) ==
LOC: HO.LAB 06:12
PROVIDERS: PCP Internal Medicine; Visit Provider Internal Medicine
DX: I10 Essential (primary) hypertension (principal); E78.2 Mixed hyperlipidemia
CPT/HCPCS: 36415; 80053; 80061

== ENCOUNTER 2025-07-10 06:10 | Outpatient (REF) | payer OTHER, SELFPAY ==
--- OUTSIDE RECORDS SUMMARY | 2025-07-10 06:12 | XMS_ITS | Encounter Summary ---
Author Organization [employer] Address [address] [place] [address] Care Team Providers Care Terrazzo Tile Setter Name Role Phone Keshav Kilpatrick MD Primary Care Provide r Ruthie Beaulieu PharmD Unavailable [phone] Reason for Visit * Reason Onset Date Comments lanre solis 10/03/2023 Encounter Details Date Type Department Care Team ([facility] st Contact Info) Description 10/03/2023 Telephone [facility] [address] [place] [address] Dino Reina, DMD [address] [place] [address] lanre slois Social History Tobacco Use Types Packs/Day Years Used Date Smoking Tobacco: Never Passive Smoke Exposure: Never Smokeless Tobacco: Never Alcohol Use Standard Drinks/Week Comments Not Currently 0 (1 standard drink = 0.6 oz pur e alcohol) Housing Stability Answer Date Recorded What is your housing situation today? I have shameka selby 07/11/[address] you li ve. Do you have problems with any of the following? None of the above 07/11/2023 Food Insecurity Answer Date Recorded Within the past 12 months, y ou worried that your food would run out before you got money to buy more: Never True 07/11/2023 Within the past 12 months,th e food you bought just didn't last and you didn't have enough money to get more: Never True 02/2023 Transportation Answer Date Recorded In the past 12 months, has l ack of transportation kept you from medical appts, meetings, work or from getting things needed for daily living? No 07/11/2023 Utilities Answer Date Recorded In the past 12 months, has t he electric, gas, oil or water company threatened to shut off services in your home? No 07/11/2023 Sex and Gender Information Value Date Recorded Sex Assigned at Male 07/05/2022 10:17 AM EDT Legal Sex Male 10:17 AM EDT Gender Identity Male 07/05/2022 10:17 AM EDT Sexual Orientation Choose not to disclose 2021 10:17 AM EDT documented as of this encounter Miscellaneous Notes * Telephone Encounter - Tiffanie Nasir - 10/03/2023 11:55 AM EST Patient called in stating that his partials broke and wants an appt. Was trying to do a walk in as an emergency but patient is not in pain. More of an inconvenience of walking around without them on.Called front desk administrator. No answer. Informed patient that I would relay message to office and they would reach out for scheduling. documented in this encounter Plan of Treatment Not on file documented as of this encounter Goals Goal Patient Goal Type Associated Problems Recent Progress Patient-Stated? Author Blood Pressure < 140/90 Blood Pressure Primary hypertension 124/70(2024 2:42 PM EDT) No Ruthie Beaulieu PharmD Patient will adhere to medication regimen General Primary hypertension No Ruthie Beaulieu PharmD documented as of this encounter Visit Diagnoses Not on filedocumented in this encounter Care Teams Terrazzo Tile Setter Relationship Specialty Start Date End Date Keshav Kilpatrick MD [address] [place] [address] PCP - General Internal Medicine 08/31/19 Ruthie Beaulieu PharmD [address] [place] [address] Pharmacist Internal Medicine 12/06/22 documented as of this encounter
--- OUTSIDE RECORDS SUMMARY | 2025-07-10 06:12 | XMS_ITS | Encounter Summary ---
Author Organization [employer] Address [address] [place] [address] [address] [place] [address] Care Team Providers Care Papier Mache' Molder Name Role Phone Keshav Kilpatrick MD Primary Care Provide r Ruthie Beaulieu PharmD Unavailable [phone] Reason for Visit * Reason Onset Date Comments Appointment Request 10/23/2024 Encounter Details Date Type Department Care Team ([facility] st Contact Info) Description 10/23/2024 Telephone [facility] [address] [place] [address] Keshav Kilpatrick MD [address] [place] [address] Appointment Request Social History Tobacco Use Types Packs/Day Years [...] off services in your home? No 07/11/2023 Internet Access Answer Date Recorded Internet Access Q1 Yes 09/13/2024 Internet Access Q2 I do not want or need it 05/2025 Sex and Gender Information Value Date Recorded Sex Assigned at Male 07/05/2022 10:17 AM EDT Legal Sex Male 10:17 AM EDT Gender Identity Male 07/05/2022 10:17 AM EDT Sexual Orientation Choose not to disclose 2021 10:17 AM EDT documented as of this encounter Miscellaneous Notes * Telephone Encounter - Juan Abraham - 10/23/2024 10:58 AM EST TC from pt requesting to r/s Apt from 10/16/24 Contact pt at [phone] documented in this encounter Plan of Treatment [...] on filedocumented in this encounter Care Teams Papier Mache' Molder Relationship Specialty Start Date End Date Keshav Kilpatrick MD [address] [place] [address] PCP - General Internal Medicine 08/31/19 Ruthie Beaulieu PharmD [address] [place] [address] Pharmacist Internal Medicine 12/06/22 documented as of this encounter
--- OUTSIDE RECORDS SUMMARY | 2025-07-10 06:12 | XMS_ITS | Clinical Summary ---
Author Organization [employer] Address [address] [facility] [address] [facility] [address] [place] [address] Care Team Providers Care Senior Technical Support Engineer Name Role Phone Keshav Kilpatrick MD Primary Care Provide r Ruthie Beaulieu PharmD Unavailable [phone] Allergies No known active allergies Medications lisinopril 20 MG tabletIndications: Primary hypertension Take 1 tablet (20 mg) by mouth Once per day. 90 tablet 2 07/02/20 25 026 Active atorvastatin (Lipitor) 10 MG tabletIndications: Mixed hyperlipidemia Take 1 tablet (10 mg) by mouth Once per day. 30 tablet 6 07/02/20 25 026 Active lisinopril 20 MG tabletIndications: Primary hypertension Take 1 tablet (20 mg) by mouth Once per day. 90 tablet 2 01/31/20 25 025 Discontinued(Re order (will not trigger notification to Pharmacy)) Active Problems Problem Noted Date Diagnosed Date Preventative health care 05/15/2024 Assessment & Plan (07/02/2025 2:57 PM EDT): PSA 05/26/2024: Normal, will repeat Colonoscopy: 08/23/2023, 3 year follow up recommended Tubular adenomas Assessment & Plan (01/30/2025 3:03 PM EDT): PSA 05/26/2024: Normal Colonoscopy: 08/23/2023, 3 year follow up recommended Tubular adenomas Assessment & Plan (05/15/2024 1:31 PM EDT): PSA ordered Colonoscopy: 08/23/2023 3 year follow up recommended Tubular adenomas Tubular adenoma of colon 05/15/2024 Assessment & Plan (05/15/2024 12:57 PM EDT): Colonoscopy: 08/23/2023 3 year follow up recommended Tubular adenomas Class 2 severe obesity due t o excess calories with serious comorbidity and body mass index (BMI) of 38.0 to 38.9 in adult 02/15/2023 Assessment & Plan (07/02/2025 2:56 PM EDT): Patient has been counseled and educated about diet and exercise. Personal goal of weight loss discussedPatient has comorbidity of: HTN Dietary Recommendations: Fruits, vegetables, whole grains, protein foods, and fat-free or low-fat dairy products are healthy choices. Eat different types of protein foods in your diet. This can include seafood, lean meats, poultry, beans, peas, lentils, nuts, seeds, soy products, and eggs. Limit foods and beverages higher in added sugars, saturated fat, and sodium. Exercise Recommendations: At least 150 minutes of moderate-intensity physical activity per week, or an equivalent combination of moderate- and vigorous-intensity activity Assessment & Plan (01/30/2025 2:49 PM EDT): Patient has been counseled and educated about diet and exercise. Personal goal of weight loss discussedPatient has comorbidity of: HTN Dietary Recommendations: Fruits, vegetables, whole grains, protein foods, and fat-free or low-fat dairy products are healthy choices. Eat different types of protein foods in your diet. This can include seafood, lean meats, poultry, beans, peas, lentils, nuts, seeds, soy products, and eggs. Limit foods and beverages higher in added sugars, saturated fat, and sodium. Exercise Recommendations: At least 150 minutes of moderate-intensity physical activity per week, or an equivalent combination of moderate- and vigorous-intensity activity Assessment & Plan (05/15/2024 1:30 PM EDT): Patient has been counseled and educated about diet and exercise. Personal goal of weight loss discussedPatient has comorbidity of: HTN Assessment & Plan (02/15/2023 3:02 PM EDT): Patient has been counseled and educated about diet and exercise. Personal goal of weight loss discussedPatient has comorbidity of: HTN Umbilical hernia without obstruction and without gangrene 02/15/2023 Assessment & Plan (05/15/2024 1:38 PM EDT): S/p repair 2023 Assessment & Plan (02/15/2023 3:07 PM EDT): Pt would like to be evaluated for surgical correction Impaired glucose tolerance 02/04/2023 Assessment & Plan (07/02/2025 2:55 PM EDT): 03/27/2025: 104 Assessment & Plan (01/30/2025 2:48 PM EDT): 05/26/2024: 116 Will obtain a repeat FBS Assessment & Plan (05/15/2024 12:59 PM EDT): Will obtain a repeat FBS Primary hypertension 11/02/2022 Assessment & Plan (07/02/2025 2:54 PM EDT): Pt is here for a f/u regarding his HTN Pt is on Lisinopril 20 mg po daily Most recent electrolytes, Bun and Creatinine done on: Lab Results Component Value Date NA 139 03/27/2025 NA 140 05/26/2024 K 4.1 03/27/2025 K 4.2 05/26/2024 CL 107 03/27/2025 CL 110 (H) 05/26/2024 BUN 12 03/27/2025 BUN 14 05/26/2024 CREATININE 0.84 03/27/2025 CREATININE 0.85 05/26/2024 were within normal limits. patient advised to adhere to a low sodium diet, encouraged about medication compliance, counseled about weight loss. f/u 4 months Assessment & Plan (01/30/2025 2:47 PM EDT): Pt is here for a f/u regarding his HTN Pt is on Lisinopril 20 mg po daily Most recent electrolytes, Bun and Creatinine done on: Lab Results Component Value Date NA 140 05/26/2024 NA 141 10/28/2022 K 4.2 05/26/2024 K 4.3 10/28/2022 CL 110 (H) 05/26/2024 CL 106 10/28/2022 BUN 14 05/26/2024 BUN 11 10/28/2022 CREATININE 0.85 05/26/2024 CREATININE 0.81 10/28/2022 were within normal limits. Will order a repeat BMP patient advised to adhere to a low sodium diet, encouraged about medication compliance, counseled about weight loss. f/u 4 months Assessment & Plan (05/15/2024 12:58 PM EDT): Pt here for a f/u Pt is on Lisinopril 20 mg po daily Most recent electrolytes, Bun and Creatinine done on: 10/28/2022 were within normal limits. Will repeat patient advised to adhere to a low sodium diet, encouraged about medication compliance, counseled about weight loss. f/u 4 months Assessment & Plan (02/15/2023 2:59 PM EDT): Pt here for a f/u Pt is on Lisinopril 20 mg po daily Most recent electrolytes, Bun and Creatinine done on: 10/28/2022 were within normal limits. patient advised to adhere to a low sodium diet, encouraged about medication compliance, counseled about weight loss. f/u 4 months Assessment & Plan (12/06/2022 5:54 PM EDT): - BP is at goal of less than 140/90 per JNC8 guidelines. - Refills for lisinopril 20mg daily sent to pharmacy - Next follow-up in 1 year Mixed hyperlipidemia 11/02/2022 Assessment & Plan (07/02/2025 3:02 PM EDT): Patient here for a follow up with elevated lipids. Lab Results Component Value Date TRIG 217 (H) 03/27/2025 TRIG 101 05/26/2024 CHOL 212 (H) 03/27/2025 CHOL 209 (H) 05/26/2024 LDLCHOLCAL 124 (H) 03/27/2025 LDLCHOLCAL 141 (H) 05/26/2024 HDL 45 03/27/2025 HDL 48 05/26/2024 No longer on Fish Oil TID, Plan: Start Atorvastatin 10 mg po qhs advised to try to adhere to a low cholesterol diet, counseled and educated about diet and exercise, Patient encouraged to come up with a personal goal for weight loss. Assessment & Plan (01/30/2025 3:02 PM EDT): Patient here for a follow up with elevated lipids. Lab Results Component Value Date TRIG 101 05/26/2024 TRIG 207 03/17/2023 CHOL 209 (H) 05/26/2024 CHOL 217 03/17/2023 LDLCHOLCAL 141 (H) 05/26/2024 LDLCHOLCAL 128 03/17/2023 HDL 48 05/26/2024 HDL 48 03/17/2023 No longer on Fish Oil TID, Plan: Continue current regimen, Repeat Lipid profile advised to try to adhere to a low cholesterol diet, counseled and educated about diet and exercise, Patient encouraged to come up with a personal goal for weight loss. Assessment & Plan (05/15/2024 12:59 PM EDT): Patient with elevated lipids. Lab Results Component Value Date TRIG 207 03/17/2023 CHOL 217 03/17/2023 LDLCHOLCAL 128 03/17/2023 HDL 48 03/17/2023 Currently on Fish Oil TID, Plan: Continue current regimen, Repeat Lipid profile advised to try to adhere to a low cholesterol diet, counseled and educated about diet and exercise, Patient encouraged to come up with a personal goal for weight loss. Assessment & Plan (02/15/2023 3:00 PM EDT): Patient with elevated lipids. Most recent lipid profile from: 08/24/2021 shows a total cholesterol of: 251 triglycerides of: 131 HDL of: 70 and LDL of: 155 Currently on Fish Oil TID, Most recent LFT'S from: were normal Plan: Continue current regimen, Repeat Lipid profile advised to try to adhere to a low cholesterol diet, counseled and educated about diet and exercise, Patient encouraged to come up with a personal goal for weight loss. Right knee pain 11/02/2022 Assessment & Plan (01/30/2025 2:52 PM EDT): S/p TKR left Pt with previous c/o right knee pain, difficulty walking and doing his job as a result Plain films right knee === 05/15/24 === XR KNEE 3 VIEWS RIGHT - Impression - Normal right knee. Electronically signed by: Lucian Kitchen MD 05/30/2024 06:54 AM EDT RP Pt was referred to Ortho for evaluation but was not seen. Assessment & Plan (05/15/2024 1:40 PM EDT): S/p TKR left Pt now with c/o right knee pain, difficulty walking and doing his job as a result Plan: Obtain plain films right knee Ortho evaluation Assessment & Plan (02/15/2023 3:01 PM EDT): S/p TKR left Steatosis of liver 01/28/2016 Iron overload 01/28/2016 Vitamin D deficiency 11/17/2015 Depressed mood 11/17/2015 Encounters Date Type Department Care Team Description 07/02/2025 2:30 PM EDT Office Visit [facility] [address] [place] [address] Keshav Kilpatrick MD Primary hypertension (Primary Dx); Mixed hyperlipidemia; Impaired glucose tolerance; Class 2 severe obesity due to excess calories with serious comorbidity and body mass index (BMI) of 38.0 to 38.9 in adult; Preventative health care; Encounter for immunization 07/02/2025 Travel 06/25/2025 Patient Outreach [facility] [address] [place] [address] Keshav Kilpatrick MD Pre-visit Planning (SDOH screening completed on 09/27/24) 05/09/2025 Patient Outreach [facility] [address] [place] [address] Keshav Kilpatrick MD Pre-visit Planning (SDOH re scheduled.) 05/09/2025 Patient Outreach [facility] [address] [place] [address] Keshav Kilpatrick MD from Last 3 Months Immunizations Immunization Administration Dates Next Due Hep B, adult 11/17/2015 Influenza injectable quadriv alent IIV4 with preservative 05/23/2019,07/10/2015 Influenza injectable quadrivalent preservative f ree 07/26/2022,08/11/2021 Influenza, seasonal, injectable, preservative fr ee 07/02/2025,05/15/2024 Tdap 05/23/2019 Social History Tobacco Use Types Packs/Day Years Used Date Smoking Tobacco: Never Passive Smoke Exposure: Never Smokeless Tobacco: Never Tobacco Cessation:Counseling Given: Not Answered Alcohol Use Standard Drinks/Week Comments Not Currently 0 (1 standard drink = 0.6 oz pur e alcohol) Depression Answer Date Recorded Patient Health Questionnaire-9 Score 5 01/30/2025 Patient Health Questionnaire-9 Score 5 01/30/2025 Last PHQ-9: Questionnaire Data Not on file 0 01/30/2025 Housing Stability Answer Date Recorded What is your housing situation today? I have shameka sola 07/11/[address] you li [...] off services in your home? No 07/11/2023 Depression Answer Date Recorded Patient Health Questionnaire-2 Score 2 01/30/2025 Internet Access Answer Date Recorded Internet Access Q1 Yes 05/06/2025 Internet Access Q2 Not on file 05/06/2025 Sex and Gender Information Value Date Recorded Sex Assigned at Male 07/05/2022 10:17 AM EDT Legal Sex Male 10:17 AM EDT Gender Identity Male 07/05/2022 10:17 AM EDT Sexual Orientation Choose not to disclose 2021 10:17 AM EDT Last Filed Vital Signs Vital Sign Reading Time Taken Comments Blood Pressure 124/70 07/02/2025 2:42 PM EDT Pulse 69 07/02/2025 2:42 PM EDT Temperature 36.4 C (97.5 F) 07/02/2025 2:42 PM EDT Respiratory Rate 20 07/02/2025 2:42 PM EDT Oxygen Saturation 97% 05/15/2024 1:16 PM EDT Inhaled Oxygen Concentration - - Weight 107 kg (235 lb 9.6 oz) 07/02/2025 2:42 PM EDT Height 167 cm (5' 5.75 ) 07/02/2025 2:42 PM EDT Body Mass Index 38.32 07/02/2025 2:42 PM EDT Plan of Treatment Health Maintenance Due Date Last Done Comments CT Colonography 1973 FIT DNA/Cologuard 1973 FIT 1973 FOBT 1973 HIV Screening 1973 Sigmoidoscopy 1973 Family Planning (PISQ) 1988 Hepatitis A Vaccines (1 of 2 - Risk 2-dose series) 1992 Hepatitis B Vaccines (2 of 3 - 19+ 3-dose series) 12/15/2015 11/17/2015 Pneumococcal Vaccine: 50+ Years (1 of 1 - PCV) 2023 Zoster Vaccines (1 of 2) 2023 Dental Oral Exam 07/16/2024 01/13/2024, 10/08/2022 Dental Prophylaxis 07/16/2024 01/13/2024, 10/15/2022 Dental X-Ray: Bitewings 01/13/2025 01/13/2024, 10/08 COVID-19 Vaccine ( season) 2025 04/21/2022, 02/09/2021, 01/08/2021 SDOH Screening 09/27/2025 09/27/2024 Dental X-Ray: Full Mouth 10/09/2025 10/08/2022 Alcohol/Substance Use Screening 01/30/2026 01/30/2025 Depression Screening 01/30/2026 01/30/2025, 01/31/20 25 Disability Screening 01/30/2026 01/30/2025 Tobacco Screening 07/02/2026 07/02/2025 Colonoscopy 08/23/2026 08/23/2023 Colorectal Cancer Screening 08/23/2026 DTaP/Tdap/Td Vaccines (2 - Td or Tdap) 05/23/2029 05/23/2019 Lipid Panel 03/27/2030 03/27/2025, 05/07, 03/17/2023, Additional history exists RSV Patients and Patients Aged 60 years or older (1 - 1-dose 75+ series) 2048 Hepatitis C Screening Completed 06/24/2020 Influenza Vaccine Completed 07/02/2025, , 07/26/2022, Additional history exists HIB Vaccines Aged Out No longer eligi ble based on patient's age to complete this topic HPV Vaccines Aged Out No longer eligi ble based on patient's age to complete this topic IPV Vaccines Aged Out No longer eligi ble based on patient's age to complete this topic Meningococcal B Vaccine Aged Out No l onger eligible based on patient's age to complete this topic Meningococcal Vaccine Aged Out No chloe gary eligible based on patient's age to complete this topic RSV under 20 months Aged Out No longe r eligible based on patient's age to complete this topic Rotavirus Vaccines Aged Out No longer eligible based on patient's age to complete this topic Goals Goal Patient Goal Type Associated Problems Recent Progress Patient-Stated? Author Blood Pressure < 140/90 Blood Pressure Primary hypertension 124/70(2024 2:42 PM EDT) No Ruthie Beaulieu PharmD Patient will adhere to medication regimen General Primary hypertension No Ruthie Beaulieu PharmD Procedures Procedure Name Priority Date/Time Associated Diagnosis Comments LIPID PANEL, STANDARD Routine 03/27/2025 6:27 AM EDT Mixed hyperlipidemia PROPHYLAXIS - ADULT Routine 01/13/2024 3 :00 PM EDT Missing teeth, acquired Dental plaque BITEWINGS - 3 RADIOGRAPHIC IMAGES Routine 01/13/2024 3:00 PM EDT Missing teeth, acquired Dental plaque PERIODIC ORAL EVALUATION - ESTABLISHED PATIENT Routine 01/13/2024 3:00 PM EDT Missing teeth, acquired Dental plaque HM COLONOSCOPY Routine 08/23/2023 INTRAORAL - COMPLETE SERIES OF RADIOGRAPHIC IMAGES Routine 10/08/2022 2:30 PM EST ZZZ HISTORICAL HEPATITIS C AB W/REFL TO HCV RNA, QN, PCR Routine 06/24/2020 9:49 AM EDT from Last 3 Months or Most Recently Relevant to Health Maintenance Results * (ABNORMAL) Lipid Panel, Standard (03/27/2025 6:27 AM EDT) Triglycerides 217(H) <150 mg/dL [facility] Comment:Desirable Triglyceri de: less than 150 mg/dLBorderline High Triglyceride 150-199 mg/dLHigh Triglyceride: 200-499 mg/dLVery High Triglyceride: greater than or equal to 5OO mg/dL Cholesterol 212(H) <200 mg/dL [facility] Comment:Desirable Cholestero l: less than 200 mg/dLBorderline High Cholesterol: 200-239 mg/dLHigh Cholesterol: greater than 239 mg/dL LDL Cholesterol Calculated 124(H) <100 mg/dL [facility] Comment:Desirable LDL: less than 100 mg/dLNear Optimal/Above Optimal LDL: 110- 129 mg/dLBorderline High LDL: 130-159 mg/dLHigh LDL: 160-189 mg/dLVery High LDL: greater than or equal to 190 mg/dL HDL Cholesterol 45 >40 mg/dL [facility] Comment:Desirable HDL: great er than 40 mg/dL Note: This HDL assay may give artificially low results in patients with liver disease. Blood Venous blood specimen / Unknown 03/27/2025 6:27 AM EDT 03/27/2025 6:27 AM EDT us Keshav Masterson MD LAB BLOOD ORDERABLES Final Result [facility] [address] [place] [address] [phone] * Colonoscopy (08/23/2023) Colonoscopy Normal Normal Comment:Dr Tavares polyps 3 y ear follow up Historical Provider MD HEALTH MAINTENANCE Final Result * HEPATITIS C AB W/REFL TO HCV RNA, QN, PCR (06/24/2020 9:49 AM EDT) HEPATITIS C ANTIBODY NON-REACT [facility] NON-REACT [facility] INDEX 0.07 <1.00 [facility] Comment: HCV antibody was non-reactive. There is no laboratory evidence of HCV infection. In most cases, no further action is required. However, if recent HCV exposure is suspected, a test for HCV RNA (test code 56911) is suggested. For additional information please refer to http://education.[employer]Gen/faq/QEN82v3 (This link is being provided for informational/ educational purposes only.) 06/24/2020 9:49 AM EDT Keshav Masterson MD HISTORICAL/NON ORDERA BLE LABS Final Result [facility] [address] from Last 3 Months or Most Recently Relevant to Health Maintenance Insurance [place]ENT[place] - [place] FULL (MEDICAID) Care Teams Senior Technical Support Engineer Relationship Specialty Start Date End Date Keshav Kilpatrick MD [address] [place] [address] PCP - General Internal Medicine 08/31/19 Ruthie Beaulieu PharmD [address] [place] [phone] Pharmacist Internal Medicine 12/06/22
--- OUTSIDE RECORDS SUMMARY | 2025-07-10 06:12 | XMS_ITS | Encounter Summary ---
Author Organization [employer] Address [address] [place] [address] [address] [place] [address] Care Team Providers Care Nuclear Plant Construction Worker Name Role Phone Keshav Kilpatrick MD Primary Care Provide r Ruthie Beaulieu PharmD Unavailable [phone] Encounter Details Date Type Department Care Team ([facility] Contact Info) Description 11/05/2022 Abstract [facility] [address] [place] [address] Dino Reina, DMD [address] [place] [address] Social History Tobacco Use Types Packs/Day Years Used Date Smoking Tobacco: Never Smokeless Tobacco: Never Alcohol Use Standard Drinks/Week Comments Not Currently 0 (1 standard drink = 0.6 oz pur e alcohol) Sex and Gender Information Value Date Recorded Sex Assigned at Male 07/05/2022 10:17 AM EDT Legal Sex Male 10:17 AM EDT Gender Identity Male 07/05/2022 10:17 AM EDT Sexual Orientation Choose not to disclose 2021 10:17 AM EDT COVID-19 Exposure Response Date Recorded In the last 10 days, have yo u been in contact with someone who was confirmed or suspected to have Coronavirus/COVID-19? No / Unsure 11/01/2022 10:46 AM EST documented as of this encounter Plan of Treatment Not on file documented as of this encounter Visit Diagnoses Not on filedocumented in this encounter Care Teams Nuclear Plant Construction Worker Relationship Specialty Start Date End Date Keshav Kilpatrick MD [address] [place] [address] PCP - General Internal Medicine 08/31/19 Ruthie Beaulieu, JeffD [address] [place] [address] [place] [address] Pharmacist Internal Medicine 12/06/22 documented as of this encounter
== END 2025-07-10 06:11 | disposition home or self-care (01) ==
LOC: HO.LAB 06:10
PROVIDERS: PCP Internal Medicine; Visit Provider Internal Medicine
DX: Z00.00 Encounter for general adult medical examination without abnormal findings (principal); E66.812 Obesity, class 2; Z68.38 Body mass index [BMI] 38.0-38.9, adult
CPT/HCPCS: 36415; 84153; 84443